=== PATIENT | female | born 1945 | race Caucasian/White ===

== ENCOUNTER → 2016-09-24 | Outpatient (REF) | payer MEDICARE, BC | LOC: M SFHCCLAY 07:02 | PROVIDERS: ATTEND Nurse Practitioner Family | DX: E75.6 Lipid storage disorder, unspecified (principal); E55.9 Vitamin D deficiency, unspecified ==

== ENCOUNTER → 2016-12-12 | Outpatient (CLI) | payer MEDICARE, BC ==
--- NOTE | 2016-12-12 14:16 | REPMRS ---
Patient History The patient states she has not had a clinical breast exam in over a year. Patient is postmenopausal. Family history of breast cancer in sister under age 50. Took estrogen for 3 years. Digital Woman Screen Mammo: December 12, 2016 - Exam #: [id number] Bilateral CC and MLO view(s) were taken. Technologist: Cindy Jaramillo Technologist Prior study comparison: April 28, 2015, digital woman screen mammo performed at [facility]. February 04, 2014, bilateral bilat screen digital mammo, performed at [facility] ([facility] FINDINGS: The breast tissue is heterogeneously dense. This may lower the sensitivity of mammography. There has been no change in the appearance of the mammogram from the prior studies. There is a moderate amount of residual fibroglandular tissue which is fairly symmetric. There is no interval development of dominant mass, areas of architectural distortion, or clustered microcalcification typical of malignancy. ASSESSMENT: BI-RADS/ACR category 1 mammogram. Negative. Recommendation Routine screening mammogram in 1 year (for women over age 40). This mammogram was interpreted with the aid of an FDA-approved computer-aided dectection system. Electronically Signed By: Ubaldo Bird MD 12/12/16 3560
== END ==
LOC: M WHC 11:14
PROVIDERS: ATTEND Nurse Practitioner Family
DX: Z12.31 Encounter for screening mammogram for malignant neoplasm of breast (principal)

== ENCOUNTER → 2017-01-23 | Outpatient (REF) | payer MEDICARE, BC ==
[~2017-01-23] MED LIST: AMLO10TA2 PO; CALCTAB63 PO; FOLI1TAB4 PO; HYDR12CA PO; MAGN64TASA PO; METH2.5TA PO; NAPR500T3 PO; QUIN1TAB15 PO; RANI150T PO; ROSU20TA PO; SYNT100T PO; VITA100067 PO
[2017-01-23 13:43] LABS: ANION GAP 8 MEQ/L (8-16); BLOOD UREA NITROGEN 18 MG/DL (7-18); CARBON DIOXIDE LEVEL 29 MEQ/L (21-32); CHLORIDE LEVEL 106 MEQ/L (98-107); CREATININE FOR GFR 0.75 MG/DL (0.55-1.02); GLOMERULAR FILTRATION RATE > 60.0 (>39); GLUCOSE, FASTING 82 MG/DL (83-110); POTASSIUM SERUM 4.6 MEQ/L (3.5-5.1); SODIUM LEVEL 143 MEQ/L (136-145)
== END ==
LOC: M LABDRAWC 12:28
PROVIDERS: ATTEND Ophthalmology
DX: I10 Essential (primary) hypertension (principal)
CPT/HCPCS: 36415; 80048; 93005; G0463

== ENCOUNTER 2017-02-07 10:41 | Day surgery (SDC) | payer MEDICARE, BC ==
[~2017-02-07] VITALS: Ht 167.6 cm; Wt 68.0 kg
[~2017-02-07 10:41] MED LIST changes: +ACETYLCHOLINE OPHTH SOLN 1% 2ML (MIOCHOL-E) As Ordered ONE; +BALANCED SALT IRRIGATION SOLUTION 500ML BAG (FOR OR EYE MACHINE) As Ordered ONE; +CEFUROXIME 1MG/0.1ML INTRACAMERAL INJ As Ordered ONE; +DUOVISC (0.50ML VISCOAT/0.55ML PROVISC) OPHTH KIT As Ordered ONE; +LIDOCAINE 0.75%/EPINEPHRINE 0.025% IN BSS 1ML SYR INTRACAMERAL (OR ONLY) As Ordered ONE; +MIDAZOLAM INJ 2 MG/2 ML VIAL (J2250) As Ordered ONE; +OFLOXACIN 0.3 % (OCUFLOX) OPTH SOL 5ML XX ONE; +PHENYLEPHRINE 2.5% OPHTH SOL 2ML XX ONE; +POVIDONE-IODINE 5% OPHTH PREP SOL 30ML As Ordered ONE; +PROPARACAINE 0.5% OPHTH SOL 15ML XX ONE; +TROPICAMIDE 1% OPHTH SOLN 2ML XX ONE; +fentaNYL 100 MCG/2 ML INJECTION (J3010) As Ordered ONE
[2017-02-07] MEDS ORDERED: LR 1,000 ML IV ONE (11:00)
[2017-02-07 14:40] VITALS: BP 138/62
--- NOTE | 2017-02-10 08:18 | RO ---
DATE OF PROCEDURE: 02/07/2017 PREOPERATIVE DIAGNOSIS: Visually significant nuclear sclerotic cataract right eye. POSTOPERATIVE DIAGNOSIS: Visually significant nuclear sclerotic cataract right eye. PROCEDURE: Cataract extraction with use of phacoemulsification, and placement of intraocular lens, AU00T0 24.0 D , right eye. SURGEON: Dell Vu DO FUEL PILOT ENGINEER: ANESTHESIA: Local with monitored anesthesia care (MAC). COMPLICATIONS: None. POSTOPERATIVE CONDITION: Stable. INDICATION FOR SURGERY: Blurred vision right eye affecting patient's activities of daily living. DESCRIPTION OF PROCEDURE: The patient was seen in the preoperative area and properly identified. The correct operative eye was identified and marked. Attention was turned to that eye. The patient received topical antibiotics in the preoperative area. The patient then received topical dilating drops consisting of Tropicamide and Phenylephrine. The patient was then transferred to the operating room. The correct side was re-identified. The patient received topical anesthetics and antibiotics on the surface of the eye. The eye was prepped and draped in a sterile fashion. The upper and lower eyelids were isolated with Tegaderm tape, and the lids were held open with an adjustable speculum. Using a sideport blade, a paracentesis incision was made. Intraocular preservative-free lidocaine was then injected into the anterior chamber. Viscoelastic was then injected into the anterior chamber through the paracentesis. Using a 2.6 mm sharp-tipped keratome, the anterior chamber was entered via a temporal clear corneal incision. A continuous curvilinear capsulorrhexis was created with the aid of a 26g cystotome and utrata forceps. Hydrodissection was performed with balanced salt solution (BSS) on a blunt cannula until the nucleus was freely mobile. The crystalline lens was phacoemulsified and aspirated. Additional cohesive viscoelastic was placed into the capsular bag to deepen it. A 24.0 lens D was placed into the capsular bag and confirmed by visualizing the continuous curvilinear capsulorrhexis. Additional irrigation and aspiration was used to remove cortical material and remaining viscoelastic. The clear corneal incision was hydrated with BSS on a blunt cannula. The lens was well positioned. The incisions were then tested for leaks and found to be negative. The eye was then palpated for appropriate pressure and adjusted accordingly with BSS. The eyelid speculum was carefully removed. A shield was placed over the eye. The patient tolerated the procedure well and was discharged to the recovery unit in a stable condition. edited: 02/11/2017 1434 tkf MTDD
== END 2017-02-07 14:54 | disposition home or self-care (01) ==
LOC: M SDC 10:41
PROVIDERS: ATTEND Ophthalmology
DX: H25.11 Age-related nuclear cataract, right eye (principal); I10 Essential (primary) hypertension; E78.5 Hyperlipidemia, unspecified; E03.9 Hypothyroidism, unspecified; Z92.3 Personal history of irradiation; Z79.899 Other long term (current) drug therapy; Z88.2 Allergy status to sulfonamides
CPT/HCPCS: 66984; J2250; J3010; V2632

== ENCOUNTER → 2017-03-07 | Day surgery (SDC) | payer MEDICARE, BC ==
[~2017-03-07] VITALS: Ht 167.6 cm; Wt 68.0 kg
[~2017-03-07] MED LIST changes: +LR 1,000 ML IV SCH; +OFLOXACIN 0.3 % (OCUFLOX) OPTH SOL 5ML OS ONE; -OFLOXACIN 0.3 % (OCUFLOX) OPTH SOL 5ML XX ONE; +PHENYLEPHRINE 2.5% OPHTH SOL 2ML OS ONE; -PHENYLEPHRINE 2.5% OPHTH SOL 2ML XX ONE; +PROPARACAINE 0.5% OPHTH SOL 15ML OS ONE; -PROPARACAINE 0.5% OPHTH SOL 15ML XX ONE; +TROPICAMIDE 1% OPHTH SOLN 2ML OS ONE; -TROPICAMIDE 1% OPHTH SOLN 2ML XX ONE
[2017-03-07 08:14] VITALS: BP 161/69
--- NOTE | 2017-03-07 09:45 | RO ---
DATE OF PROCEDURE: 03/07/2017 PREOPERATIVE DIAGNOSIS: Visually significant nuclear sclerotic cataract left eye. POSTOPERATIVE DIAGNOSIS: Visually significant nuclear sclerotic cataract left eye. PROCEDURE: Cataract extraction with use of phacoemulsification, and placement of intraocular lens, AU00T0, 24.5 D , left eye. SURGEON: Dell Vu DO MEDICAL DERMATOLOGIST: ANESTHESIA: Local with monitored anesthesia care (MAC). COMPLICATIONS: None. POSTOPERATIVE CONDITION: Stable. INDICATION FOR SURGERY: Blurred vision left eye affecting patient's activities of daily living. DESCRIPTION OF PROCEDURE: The patient was seen in the preoperative area and properly identified. The correct operative eye was identified and marked. Attention was turned to that eye. The patient received topical antibiotics in the preoperative area. The patient then received topical dilating drops consisting of Tropicamide and Phenylephrine. The patient was then transferred to the operating room. The correct side was re-identified. The patient received topical anesthetics and antibiotics on the surface of the eye. The eye was prepped and draped in a sterile fashion. The upper and lower eyelids were isolated with Tegaderm tape, and the lids were held open with an adjustable speculum. Using a sideport blade, a paracentesis incision was made. Intraocular preservative-free lidocaine was then injected into the anterior chamber. Viscoelastic was then injected into the anterior chamber through the paracentesis. Using a 2.4 mm sharp-tipped keratome, the anterior chamber was entered via a temporal clear corneal incision. A continuous curvilinear capsulorrhexis was created with the aid of a 26g cystotome and utrata forceps. Hydrodissection was performed with balanced salt solution (BSS) on a blunt cannula until the nucleus was freely mobile. The crystalline lens was phacoemulsified and aspirated. Additional cohesive viscoelastic was placed into the capsular bag to deepen it. A AU00T0, 24.5 lens D was placed into the capsular bag and confirmed by visualizing the continuous curvilinear capsulorrhexis. Additional irrigation and aspiration was used to remove cortical material and remaining viscoelastic. The clear corneal incision was hydrated with BSS on a blunt cannula. The lens was well positioned. The incisions were then tested for leaks and found to be negative. The eye was then palpated for appropriate pressure and adjusted accordingly with BSS. The eyelid speculum was carefully removed. A shield was placed. The patient tolerated the procedure well and was discharged to the recovery unit in a stable condition. SENTHIL
== END | disposition home or self-care (01) ==
LOC: M SDC 06:37
PROVIDERS: ATTEND Ophthalmology
DX: H25.12 Age-related nuclear cataract, left eye (principal); I10 Essential (primary) hypertension; E78.5 Hyperlipidemia, unspecified; E05.90 Thyrotoxicosis, unspecified without thyrotoxic crisis or storm; E03.9 Hypothyroidism, unspecified; Z79.899 Other long term (current) drug therapy; Z88.2 Allergy status to sulfonamides
CPT/HCPCS: 66984; J2250; J3010; V2632

== ENCOUNTER → 2017-03-26 | Outpatient (REF) | payer MEDICARE, BC ==
[~2017-03-26] MED LIST changes: -ACETYLCHOLINE OPHTH SOLN 1% 2ML (MIOCHOL-E) As Ordered ONE; -BALANCED SALT IRRIGATION SOLUTION 500ML BAG (FOR OR EYE MACHINE) As Ordered ONE; -CEFUROXIME 1MG/0.1ML INTRACAMERAL INJ As Ordered ONE; -DUOVISC (0.50ML VISCOAT/0.55ML PROVISC) OPHTH KIT As Ordered ONE; -LIDOCAINE 0.75%/EPINEPHRINE 0.025% IN BSS 1ML SYR INTRACAMERAL (OR ONLY) As Ordered ONE; -LR 1,000 ML IV SCH; -MIDAZOLAM INJ 2 MG/2 ML VIAL (J2250) As Ordered ONE; -OFLOXACIN 0.3 % (OCUFLOX) OPTH SOL 5ML OS ONE; -PHENYLEPHRINE 2.5% OPHTH SOL 2ML OS ONE; -POVIDONE-IODINE 5% OPHTH PREP SOL 30ML As Ordered ONE; -PROPARACAINE 0.5% OPHTH SOL 15ML OS ONE; -TROPICAMIDE 1% OPHTH SOLN 2ML OS ONE; -fentaNYL 100 MCG/2 ML INJECTION (J3010) As Ordered ONE
[2017-03-26 12:04] LABS: MEAN CORPUSCULAR HGB CONC 32.5 g/dl (32.0-36.5); MEAN CORPUSCULAR VOLUME 95.2 fl (80.0-96.0); RED CELL DISTRIBUTION WIDTH 14.8 % (11.5-14.5); WHITE BLOOD COUNT 4.9 10^3/uL (4.0-10.0)
[2017-03-26 13:41] LABS: ALBUMIN 4.2 GM/DL (3.2-5.2); ALBUMIN/GLOBULIN RATIO 1.62 (1.00-1.93); ALKALINE PHOSPHATASE 80 U/L (45-117); ALT/SGPT 26 U/L (12-78); ANION GAP 6 MEQ/L (8-16); AST/SGOT 21 U/L (15-37); BILIRUBIN,TOTAL 0.9 MG/DL (0.2-1.0); BLOOD UREA NITROGEN 17 MG/DL (7-18); CALCIUM LEVEL 8.8 MG/DL (8.8-10.2); CARBON DIOXIDE LEVEL 30 MEQ/L (21-32); CHLORIDE LEVEL 108 MEQ/L (98-107); CHOLESTEROL LEVEL 144 MG/DL (<200); CREATININE FOR GFR 0.83 MG/DL (0.55-1.02); GLOMERULAR FILTRATION RATE > 60.0 (>39); GLUCOSE, FASTING 84 MG/DL (83-110); POTASSIUM SERUM 4.2 MEQ/L (3.5-5.1); SODIUM LEVEL 144 MEQ/L (136-145); TOTAL PROTEIN 6.8 GM/DL (6.4-8.2); TRIGLYCERIDES LEVEL 49 MG/DL (<150)
== END ==
LOC: M SFHCCLAY 07:08
PROVIDERS: ATTEND Nurse Practitioner Family
DX: K21.9 Gastro-esophageal reflux disease without esophagitis (principal); I10 Essential (primary) hypertension; E75.6 Lipid storage disorder, unspecified; E03.9 Hypothyroidism, unspecified; E55.9 Vitamin D deficiency, unspecified

== ENCOUNTER → 2017-07-22 | Outpatient (REF) | payer MEDICARE, BC ==
[2017-07-22 12:05] LABS: ALBUMIN 4.4 GM/DL (3.2-5.2); ANION GAP 7 MEQ/L (8-16); BLOOD UREA NITROGEN 19 MG/DL (7-18); CALCIUM LEVEL 8.9 MG/DL (8.8-10.2); CARBON DIOXIDE LEVEL 28 MEQ/L (21-32); CHLORIDE LEVEL 106 MEQ/L (98-107); CREATININE FOR GFR 0.79 MG/DL (0.55-1.30); GLOMERULAR FILTRATION RATE > 60.0 (>39); GLUCOSE, FASTING 85 MG/DL (70-100); PHOSPHORUS LEVEL 3.2 MG/DL (2.5-4.9); POTASSIUM SERUM 4.5 MEQ/L (3.5-5.1); SODIUM LEVEL 141 MEQ/L (136-145)
== END ==
LOC: M LABDRAWC 11:21
DX: I11.9 Hypertensive heart disease without heart failure (principal)
CPT/HCPCS: 80069

== ENCOUNTER → 2017-11-28 | Outpatient (REF) | payer MEDICARE, BC ==
[2017-11-28 11:35] LABS: BASO % 0.7 % (0.0-1.0); EOS # 0.1 10^3/uL (0.0-0.50); EOS % 1.3 % (0.0-3.0); HEMATOCRIT 37.5 % (36.0-47.0); HEMOGLOBIN 12.3 g/dl (12.0-15.5); IMMATURE GRANULOCYTE % 0.3 % (0-3.0); LYMPH # 1.7 10^3/uL (1.5-4.5); LYMPH % 27.7 % (24.0-44.0); MEAN CORPUSCULAR HEMOGLOBIN 31.7 pg (27.0-33.0); MEAN CORPUSCULAR HGB CONC 32.8 g/dl (32.0-36.5); MEAN CORPUSCULAR VOLUME 96.6 fl (80.0-96.0); MONO # 0.4 10^3/uL (0.0-0.8); MONO % 6.9 % (0.0-5.0); NEUTROPHILS # 3.9 10^3/uL (1.8-7.7); NEUTROPHILS % 63.1 % (36.0-66.0); PLATELET COUNT, AUTOMATED 191 10^3/uL (150-450); RED BLOOD COUNT 3.88 10^6/uL (4.00-5.40); RED CELL DISTRIBUTION WIDTH 14.3 % (11.5-14.5); WHITE BLOOD COUNT 6.1 10^3/uL (4.0-10.0)
[2017-11-28 12:20] LABS: ALBUMIN/GLOBULIN RATIO 1.54 (1.00-1.93); ALKALINE PHOSPHATASE 79 U/L (45-117); ALT/SGPT 24 U/L (12-78); ANION GAP 5 MEQ/L (8-16); AST/SGOT 19 U/L (7-37); BILIRUBIN,TOTAL 0.8 MG/DL (0.2-1.0); BLOOD UREA NITROGEN 17 MG/DL (7-18); C REACTIVE PROTEIN QUANTITATIV < 0.30 MG/DL (0.00-0.30); CARBON DIOXIDE LEVEL 30 MEQ/L (21-32); CHLORIDE LEVEL 108 MEQ/L (98-107); GLOMERULAR FILTRATION RATE > 60.0 (>39); GLUCOSE, FASTING 111 MG/DL (70-100); POTASSIUM SERUM 4.2 MEQ/L (3.5-5.1); SODIUM LEVEL 143 MEQ/L (136-145); TOTAL PROTEIN 6.6 GM/DL (6.4-8.2)
== END ==
LOC: M LABDRAWC 11:13
DX: L40.50 Arthropathic psoriasis, unspecified (principal)
CPT/HCPCS: 80053

== ENCOUNTER → 2017-12-24 | Outpatient (CLI) | payer MEDICARE, BC | LOC: M WHC 09:59 | DX: Z12.31 Encounter for screening mammogram for malignant neoplasm of breast (principal); M81.0 Age-related osteoporosis without current pathological fracture | CPT/HCPCS: 77067 ==

== ENCOUNTER → 2018-04-08 | Outpatient (REF) | payer MEDICARE, BC ==
[2018-04-08 11:23] LABS: HEMATOCRIT 37.8 % (36.0-47.0); HEMOGLOBIN 12.2 g/dl (12.0-15.5); MEAN CORPUSCULAR HEMOGLOBIN 31.4 pg (27.0-33.0); MEAN CORPUSCULAR HGB CONC 32.3 g/dl (32.0-36.5); MEAN CORPUSCULAR VOLUME 97.2 fl (80.0-96.0); PLATELET COUNT, AUTOMATED 169 10^3/uL (150-450); RED BLOOD COUNT 3.89 10^6/uL (4.00-5.40); RED CELL DISTRIBUTION WIDTH 14.6 % (11.5-14.5); WHITE BLOOD COUNT 5.5 10^3/uL (4.0-10.0)
[2018-04-08 11:43] LABS: ALKALINE PHOSPHATASE 75 U/L (45-117); ALT/SGPT 26 U/L (12-78); ANION GAP 4 MEQ/L (8-16); AST/SGOT 27 U/L (7-37); BILIRUBIN,TOTAL 0.7 MG/DL (0.2-1.0); BLOOD UREA NITROGEN 21 MG/DL (7-18); CALCIUM LEVEL 8.2 MG/DL (8.8-10.2); CARBON DIOXIDE LEVEL 32 MEQ/L (21-32); CHLORIDE LEVEL 108 MEQ/L (98-107); CHOLESTEROL LEVEL 144 MG/DL (<200); CREATININE FOR GFR 0.75 MG/DL (0.55-1.30); GLOMERULAR FILTRATION RATE > 60.0 (>39); GLUCOSE, FASTING 81 MG/DL (70-100); HDL CHOLESTEROL 75 MG/DL (>40); LDL CHOLESTEROL 58 MG/DL (<100); NON-HDL-C 69 MG/DL; POTASSIUM SERUM 4.3 MEQ/L (3.5-5.1); SODIUM LEVEL 144 MEQ/L (136-145); THYROID STIMULATING HORMONE 0.371 uIU/ML (0.358-3.740); TOTAL 25(OH) VITAMIN D 76.1 NG/ML (30.0-100.0); TOTAL PROTEIN 6.5 GM/DL (6.4-8.2); TRIGLYCERIDES LEVEL 55 MG/DL (<150)
== END ==
LOC: M SFHCCLAY 07:04
DX: K21.9 Gastro-esophageal reflux disease without esophagitis (principal); L40.8 Other psoriasis; E78.5 Hyperlipidemia, unspecified; E03.9 Hypothyroidism, unspecified; M81.0 Age-related osteoporosis without current pathological fracture
CPT/HCPCS: 84443

== ENCOUNTER → 2018-09-03 | Outpatient (REF) | payer MEDICARE, BC ==
[~2018-09-03] MED LIST changes: -AMLO10TA2 PO; +AMLO10TA5 PO; +FOLI1TAB11 PO; -FOLI1TAB4 PO; +METH2.5T48 PO; -METH2.5TA PO; +NAPR-885 PO; -NAPR500T3 PO; -QUIN1TAB15 PO; +QUIN1TAB4 PO; -ROSU20TA PO; +ROSU20TA4 PO
[2018-09-03 18:42] LABS: ALBUMIN 3.9 GM/DL (3.2-5.2); ALT/SGPT 22 U/L (12-78); BILIRUBIN,TOTAL 0.6 MG/DL (0.2-1.0); BLOOD UREA NITROGEN 19 MG/DL (7-18); C REACTIVE PROTEIN QUANTITATIV < 0.30 MG/DL (0.00-0.30); CALCIUM LEVEL 8.6 MG/DL (8.8-10.2); CARBON DIOXIDE LEVEL 30 MEQ/L (21-32); CHLORIDE LEVEL 108 MEQ/L (98-107); CREATININE FOR GFR 0.88 MG/DL (0.55-1.30); GLOMERULAR FILTRATION RATE > 60.0 (>39); GLUCOSE, FASTING 137 MG/DL (70-100); POTASSIUM SERUM 4.3 MEQ/L (3.5-5.1); SODIUM LEVEL 141 MEQ/L (136-145)
[2018-09-03 18:57] LABS: BASO % 0.5 % (0.0-1.0); EOS # 0.1 10^3/uL (0.0-0.50); EOS % 1.1 % (0.0-3.0); HEMATOCRIT 35.3 % (36.0-47.0); HEMOGLOBIN 11.6 g/dl (12.0-15.5); LYMPH # 2.7 10^3/uL (1.5-4.5); LYMPH % 40.7 % (24.0-44.0); MEAN CORPUSCULAR HEMOGLOBIN 31.5 pg (27.0-33.0); MEAN CORPUSCULAR HGB CONC 32.9 g/dl (32.0-36.5); MEAN CORPUSCULAR VOLUME 95.9 fl (80.0-96.0); MONO # 0.5 10^3/uL (0.0-0.8); MONO % 6.9 % (0.0-5.0); NEUTROPHILS # 3.4 10^3/uL (1.8-7.7); NEUTROPHILS % 50.6 % (36.0-66.0); PLATELET COUNT, AUTOMATED 181 10^3/uL (150-450); RED BLOOD COUNT 3.68 10^6/uL (4.00-5.40); WHITE BLOOD COUNT 6.7 10^3/uL (4.0-10.0)
[2018-09-03 19:53] LABS: ERYTHROCYTE SEDIMENTATION RATE 7 mm/hr (0-30)
== END ==
LOC: M SFHCPLAZ 13:20
PROVIDERS: ATTEND Internal Medicine Rheumatology
DX: Z87.2 Personal history of diseases of the skin and subcutaneous tissue (principal)

== ENCOUNTER → 2018-09-03 | Outpatient (CLI) | payer MEDICARE, BC ==
--- NOTE | 2018-09-03 15:42 | REP ---
RIGHT KNEE, FIVE VIEWS: HISTORY: Osteoarthritis. There is no acute fracture or dislocation. There is moderate narrowing of the medial knee joint space and minimal narrowing of the lateral knee joint space and lateral patellofemoral joint space. Osteophytes are present on the femur, tibia, and patella. Chondrocalcinosis is present. IMPRESSION: Degenerative change as described above.
--- NOTE | 2018-09-03 15:44 | REP ---
BILATERAL KNEES STANDING, ONE VIEW: HISTORY: Osteoarthritis. RIGHT KNEE: There is no acute fracture or dislocation. There is moderate narrowing of the medial and minimal narrowing of the lateral knee joint space. Osteophytes are present on the tibia and femur. Chondrocalcinosis is present. LEFT KNEE: There is no acute fracture or dislocation. There is moderate narrowing of the medial and mild narrowing of the lateral knee joint space. IMPRESSION: Degenerative change as described above.
--- NOTE | 2018-09-03 15:54 | REP ---
BILATERAL HANDS, EIGHT VIEWS: HISTORY: Osteoarthritis. RIGHT HAND: There is no acute fracture or dislocation. There is narrowing of the first carpometacarpal joint space with associated osteophyte formation. There is narrowing of the metacarpophalangeal joint spaces. There is narrowing of the proximal and distal interphalangeal joint spaces. Osteophytes are present at the distal interphalangeal joints of the first through fifth digits and proximal joint of the fifth digit. Osteophytes are present on the second through fourth metacarpals. IMPRESSION: Degenerative change as described above. LEFT HAND: There is no acute fracture or dislocation. There is narrowing of the first carpometacarpal joint space with associated osteophyte formation. There is narrowing of the metacarpophalangeal joint spaces. There is narrowing of the proximal and distal interphalangeal joint spaces. Osteophytes are present at the proximal interphalangeal joint spaces of the second, third and fifth digits and distal interphalangeal joints of the second, the third and fifth digits.
== END ==
LOC: M CLY 13:55
PROVIDERS: ATTEND Internal Medicine Rheumatology
DX: M17.11 Unilateral primary osteoarthritis, right knee (principal); M25.761 Osteophyte, right knee; M18.0 Bilateral primary osteoarthritis of first carpometacarpal joints; M11.261 Other chondrocalcinosis, right knee; M25.741 Osteophyte, right hand; M19.041 Primary osteoarthritis, right hand; M25.742 Osteophyte, left hand; M19.042 Primary osteoarthritis, left hand; Z87.2 Personal history of diseases of the skin and subcutaneous tissue
CPT/HCPCS: 73130; 73564; 80053; 85025; 85652; 86140; G0463

== ENCOUNTER → 2018-10-09 | Outpatient (REF) | payer MEDICARE, BC ==
[2018-10-09 11:30] LABS: CHOLESTEROL RISK RATIO 2.137 (<5)
[2018-10-09 11:37] LABS: TOTAL 25(OH) VITAMIN D 44.8 NG/ML (30.0-100.0)
== END ==
LOC: M SFHCCLAY 06:57
PROVIDERS: ATTEND Nurse Practitioner Family
DX: E78.5 Hyperlipidemia, unspecified (principal); E55.9 Vitamin D deficiency, unspecified

== ENCOUNTER → 2018-12-18 | Outpatient (REF) | payer MEDICARE, BC ==
[~2018-12-18] MED LIST changes: -ROSU20TA4 PO; +ROSU20TA5 PO
[2018-12-18 13:42] LABS: BASO % 0.4 % (0.0-1.0); EOS # 0.1 10^3/uL (0.0-0.50); EOS % 1.4 % (0.0-3.0); HEMATOCRIT 36.9 % (36.0-47.0); HEMOGLOBIN 11.8 g/dl (12.0-15.5); LYMPH # 2.8 10^3/uL (1.5-4.5); LYMPH % 37.6 % (24.0-44.0); MEAN CORPUSCULAR HEMOGLOBIN 31.1 pg (27.0-33.0); MEAN CORPUSCULAR VOLUME 97.1 fl (80.0-96.0); MONO # 0.6 10^3/uL (0.0-0.8); NEUTROPHILS # 3.9 10^3/uL (1.8-7.7); NEUTROPHILS % 52.3 % (36.0-66.0); PLATELET COUNT, AUTOMATED 176 10^3/uL (150-450); WHITE BLOOD COUNT 7.4 10^3/uL (4.0-10.0)
[2018-12-18 13:51] LABS: ALBUMIN 4.1 GM/DL (3.2-5.2); ALT/SGPT 19 U/L (12-78); BILIRUBIN,TOTAL 0.7 MG/DL (0.2-1.0); BLOOD UREA NITROGEN 20 MG/DL (7-18); C REACTIVE PROTEIN QUANTITATIV 0.37 MG/DL (0.00-0.30); CALCIUM LEVEL 8.8 MG/DL (8.8-10.2); CARBON DIOXIDE LEVEL 28 MEQ/L (21-32); CHLORIDE LEVEL 110 MEQ/L (98-107); GLOMERULAR FILTRATION RATE > 60.0 (>39); GLUCOSE, FASTING 90 MG/DL (70-100); POTASSIUM SERUM 4.7 MEQ/L (3.5-5.1); SODIUM LEVEL 142 MEQ/L (136-145); TOTAL PROTEIN 6.6 GM/DL (6.4-8.2)
[2018-12-18 14:12] LABS: ERYTHROCYTE SEDIMENTATION RATE 13 mm/hr (0-30)
== END ==
LOC: M SFHCPLAZ 11:46
PROVIDERS: ATTEND Internal Medicine Rheumatology
DX: Z87.2 Personal history of diseases of the skin and subcutaneous tissue (principal)
CPT/HCPCS: 36415; 80053; 85025; 85652; 86140; G0463

== ENCOUNTER → 2019-03-17 | Outpatient (CLI) | payer MEDICARE, BC ==
[2019-03-17 11:28] LABS: HEMATOCRIT 38.7 % (36.0-47.0); HEMOGLOBIN 12.5 g/dl (12.0-15.5); MEAN CORPUSCULAR HEMOGLOBIN 30.6 pg (27.0-33.0); MEAN CORPUSCULAR HGB CONC 32.3 g/dl (32.0-36.5); MEAN CORPUSCULAR VOLUME 94.9 fl (80.0-96.0); PLATELET COUNT, AUTOMATED 174 10^3/uL (150-450); RED BLOOD COUNT 4.08 10^6/uL (4.00-5.40); WHITE BLOOD COUNT 6.1 10^3/uL (4.0-10.0)
[2019-03-17 11:54] LABS: ALT/SGPT 21 U/L (12-78); BILIRUBIN,TOTAL 0.8 MG/DL (0.2-1.0); BLOOD UREA NITROGEN 20 MG/DL (7-18); C REACTIVE PROTEIN QUANTITATIV < 0.30 MG/DL (0.00-0.30); CALCIUM LEVEL 9.2 MG/DL (8.8-10.2); CARBON DIOXIDE LEVEL 30 MEQ/L (21-32); CHLORIDE LEVEL 107 MEQ/L (98-107); CREATININE FOR GFR 0.85 MG/DL (0.55-1.30); GLOMERULAR FILTRATION RATE > 60.0 (>39); GLUCOSE, FASTING 76 MG/DL (70-100); POTASSIUM SERUM 4.5 MEQ/L (3.5-5.1); SODIUM LEVEL 143 MEQ/L (136-145); TOTAL PROTEIN 6.6 GM/DL (6.4-8.2)
[2019-03-17 12:04] LABS: ERYTHROCYTE SEDIMENTATION RATE 7 mm/hr (0-30)
== END ==
LOC: M LAB 10:24
PROVIDERS: ATTEND Internal Medicine Rheumatology
DX: Z87.2 Personal history of diseases of the skin and subcutaneous tissue (principal)
CPT/HCPCS: 36415; 80053; 85027; 85652; 86140; G0463

== ENCOUNTER → 2019-04-07 | Outpatient (REF) | payer MEDICARE, BC | LOC: M SFHCCLAY 06:57 | PROVIDERS: ATTEND Nurse Practitioner Family | DX: Z00.00 Encounter for general adult medical examination without abnormal findings (principal); Z79.899 Other long term (current) drug therapy ==

== ENCOUNTER → 2019-07-02 | Outpatient (REF) | payer MEDICARE, BC ==
[2019-07-02 19:03] LABS: ALBUMIN 4.2 GM/DL (3.2-5.2); ALT/SGPT 28 U/L (12-78); BILIRUBIN,TOTAL 0.7 MG/DL (0.2-1.0); BLOOD UREA NITROGEN 28 MG/DL (7-18); C REACTIVE PROTEIN QUANTITATIV 0.41 MG/DL (0.00-0.30); CALCIUM LEVEL 9.1 MG/DL (8.8-10.2); CARBON DIOXIDE LEVEL 27 MEQ/L (21-32); CHLORIDE LEVEL 107 MEQ/L (98-107); CREATININE FOR GFR 0.96 MG/DL (0.55-1.30); GLOMERULAR FILTRATION RATE > 60.0 (>39); GLUCOSE, FASTING 91 MG/DL (70-100); POTASSIUM SERUM 4.5 MEQ/L (3.5-5.1); SODIUM LEVEL 141 MEQ/L (136-145); TOTAL PROTEIN 6.6 GM/DL (6.4-8.2)
[2019-07-02 19:15] LABS: BASO % 0.5 % (0.0-1.0); EOS # 0.1 10^3/uL (0.0-0.5); EOS % 1.4 % (0.0-3.0); HEMATOCRIT 38.3 % (36.0-47.0); HEMOGLOBIN 12.3 g/dl (12.0-15.5); LYMPH # 2.8 10^3/uL (1.5-5.0); LYMPH % 37.7 % (24.0-44.0); MEAN CORPUSCULAR HEMOGLOBIN 30.7 pg (27.0-33.0); MEAN CORPUSCULAR HGB CONC 32.1 g/dl (32.0-36.5); MEAN CORPUSCULAR VOLUME 95.5 fl (80.0-96.0); MONO # 0.6 10^3/uL (0.0-0.8); MONO % 7.7 % (0.0-5.0); NEUTROPHILS # 3.8 10^3/uL (1.5-8.5); NEUTROPHILS % 52.3 % (36.0-66.0); PLATELET COUNT, AUTOMATED 193 10^3/uL (150-450); RED BLOOD COUNT 4.01 10^6/uL (4.00-5.40); WHITE BLOOD COUNT 7.3 10^3/uL (4.0-10.0)
[2019-07-02 19:44] LABS: ERYTHROCYTE SEDIMENTATION RATE 6 mm/hr (0-30)
== END ==
LOC: M SFHCRHEU 13:59
PROVIDERS: ATTEND Internal Medicine
DX: L40.50 Arthropathic psoriasis, unspecified (principal)
CPT/HCPCS: 36415; 80053; 85025; 85652; 86140; G0463

== ENCOUNTER → 2019-12-24 | Outpatient (REF) | payer MEDICARE, BC ==
[2019-12-24 11:44] LABS: BASO % 0.3 % (0.0-1.0); EOS # 0.1 10^3/uL (0.0-0.5); EOS % 1.3 % (0.0-3.0); HEMATOCRIT 38.8 % (36.0-47.0); HEMOGLOBIN 12.6 g/dl (12.0-15.5); LYMPH # 2.7 10^3/uL (1.5-5.0); LYMPH % 43.6 % (24.0-44.0); MEAN CORPUSCULAR HEMOGLOBIN 31.5 pg (27.0-33.0); MEAN CORPUSCULAR HGB CONC 32.5 g/dl (32.0-36.5); MONO # 0.4 10^3/uL (0.0-0.8); MONO % 6.4 % (0.0-5.0); NEUTROPHILS % 48.2 % (36.0-66.0); PLATELET COUNT, AUTOMATED 175 10^3/uL (150-450); WHITE BLOOD COUNT 6.2 10^3/uL (4.0-10.0)
[2019-12-24 11:58] LABS: ALBUMIN 4.2 GM/DL (3.2-5.2); ALT/SGPT 22 U/L (12-78); BILIRUBIN,TOTAL 0.9 MG/DL (0.2-1.0); BLOOD UREA NITROGEN 20 MG/DL (7-18); CALCIUM LEVEL 8.7 MG/DL (8.8-10.2); CARBON DIOXIDE LEVEL 28 MEQ/L (21-32); CHLORIDE LEVEL 108 MEQ/L (98-107); CHOLESTEROL LEVEL 149 MG/DL (<200); CHOLESTEROL RISK RATIO 2.069 (<5); CREATININE FOR GFR 0.78 MG/DL (0.55-1.30); GLOMERULAR FILTRATION RATE > 60.0 (>39); GLUCOSE, FASTING 108 MG/DL (70-100); HDL CHOLESTEROL 72 MG/DL (>40); LDL CHOLESTEROL 63 MG/DL (<100); NON-HDL-C 77 MG/DL; POTASSIUM SERUM 4.1 MEQ/L (3.5-5.1); SODIUM LEVEL 140 MEQ/L (136-145); THYROID STIMULATING HORMONE 0.279 uIU/ML (0.358-3.740); TOTAL 25(OH) VITAMIN D 65.4 NG/ML (30.0-100.0); TOTAL PROTEIN 6.7 GM/DL (6.4-8.2); TRIGLYCERIDES LEVEL 68 MG/DL (<150)
[2019-12-24 12:16] LABS: ERYTHROCYTE SEDIMENTATION RATE 10 mm/hr (0-30)
== END ==
LOC: M SFHCCLAY 08:09
PROVIDERS: ATTEND Nurse Practitioner Family
DX: K21.9 Gastro-esophageal reflux disease without esophagitis (principal); I10 Essential (primary) hypertension; E78.5 Hyperlipidemia, unspecified; E03.9 Hypothyroidism, unspecified; E55.9 Vitamin D deficiency, unspecified

== ENCOUNTER → 2020-01-13 | Outpatient (REF) | payer MEDICARE, BC | LOC: M SFHCCLAY 13:59 | PROVIDERS: ATTEND Family Medicine | DX: Z11.59 Encounter for screening for other viral diseases (principal); R50.81 Fever presenting with conditions classified elsewhere ==

== ENCOUNTER → 2020-04-27 | Outpatient (REF) | payer MEDICARE, BC ==
[~2020-04-27] MED LIST changes: -AMLO10TA5 PO; +AMLO1TAB25 PO
[2020-04-27 12:35] LABS: HEMATOCRIT 38.3 % (36.0-47.0); HEMOGLOBIN 12.5 g/dl (12.0-15.5); MEAN CORPUSCULAR HEMOGLOBIN 31.9 pg (27.0-33.0); MEAN CORPUSCULAR HGB CONC 32.6 g/dl (32.0-36.5); MEAN CORPUSCULAR VOLUME 97.7 fl (80.0-96.0); PLATELET COUNT, AUTOMATED 185 10^3/uL (150-450); RED BLOOD COUNT 3.92 10^6/uL (4.00-5.40); WHITE BLOOD COUNT 6.6 10^3/uL (4.0-10.0)
[2020-04-27 13:43] LABS: ALT/SGPT 21 U/L (12-78); BILIRUBIN,TOTAL 0.7 MG/DL (0.2-1.0); BLOOD UREA NITROGEN 23 MG/DL (7-18); CALCIUM LEVEL 8.8 MG/DL (8.8-10.2); CARBON DIOXIDE LEVEL 27 MEQ/L (21-32); CHLORIDE LEVEL 108 MEQ/L (98-107); CREATININE FOR GFR 0.73 MG/DL (0.55-1.30); GLOMERULAR FILTRATION RATE > 60.0 (>39); GLUCOSE, FASTING 83 MG/DL (70-100); POTASSIUM SERUM 4.3 MEQ/L (3.5-5.1); SODIUM LEVEL 140 MEQ/L (136-145); TOTAL PROTEIN 6.4 GM/DL (6.4-8.2)
[2020-04-27 13:53] LABS: ERYTHROCYTE SEDIMENTATION RATE 10 mm/hr (0-30)
== END ==
LOC: M LABDRAWC 11:30
PROVIDERS: ATTEND Internal Medicine Rheumatology
DX: M06.4 Inflammatory polyarthropathy (principal); Z79.899 Other long term (current) drug therapy

== ENCOUNTER → 2020-04-27 | Outpatient (REF) | payer MEDICARE, BC | LOC: M SFHCCLAY 12:31 | PROVIDERS: ATTEND Nurse Practitioner Family | DX: Z53.9 Procedure and treatment not carried out, unspecified reason (principal); R73.9 Hyperglycemia, unspecified; E03.9 Hypothyroidism, unspecified ==

== ENCOUNTER → 2020-04-27 | Outpatient (REF) | payer MEDICARE, BC ==
[2020-04-27 13:43] LABS: THYROID STIMULATING HORMONE 0.454 uIU/ML (0.358-3.740)
[2020-04-27 20:28] LABS: HEMOGLOBIN A1c 5.5 %
== END ==
LOC: M SFHCCLAY 11:28
PROVIDERS: ATTEND Nurse Practitioner Family
DX: R73.9 Hyperglycemia, unspecified (principal); E03.9 Hypothyroidism, unspecified

== ENCOUNTER → 2020-07-08 | Outpatient (REF) | payer MEDICARE, BC ==
[2020-07-08 12:25] LABS: BLOOD UREA NITROGEN 24 MG/DL (7-18); CARBON DIOXIDE LEVEL 29 MEQ/L (21-32); CHLORIDE LEVEL 106 MEQ/L (98-107); CREATININE FOR GFR 0.76 MG/DL (0.55-1.30); GLOMERULAR FILTRATION RATE > 60.0 (>39); GLUCOSE, FASTING 96 MG/DL (70-100); POTASSIUM SERUM 4.3 MEQ/L (3.5-5.1); SODIUM LEVEL 141 MEQ/L (136-145)
== END ==
LOC: M LABDRAWC 11:10
PROVIDERS: ATTEND Physician Assistant
DX: I11.9 Hypertensive heart disease without heart failure (principal)

== ENCOUNTER → 2020-08-01 | Outpatient (CLI) | payer MEDICARE, BC ==
--- NOTE | 2020-08-01 14:34 | REPMRS ---
Patient History The patient states she has not had a clinical breast exam in over a year. Family history of breast cancer under age 50 in sister. Took estrogen for 3 years. Digital Woman Screen Mammo: August 01, 2020 - Exam #: [id number] Bilateral CC and MLO view(s) were taken. Technologist: Paola Jaime, Technologist Prior study comparison: December 24, 2017, bilateral digital woman screen mammo performed at [facility]. December 12, 2016, digital woman screen mammo performed at [facility]. April 28, 2015, digital woman screen mammo performed at [facility]. FINDINGS: There are scattered fibroglandular densities. The Volpara volumetric breast density category is:B. There has been no change in the appearance of the mammogram from the prior studies. There is a mild amount of scattered fibroglandular density which is fairly symmetric. There is no interval development of dominant mass, architectural distortion, or grouped microcalcification suggestive of malignancy. 3-D tomosynthesis shows no additional findings. Assessment: BI-RADS/ACR category 1 mammogram. Negative Mammogram. Recommendation Routine screening mammogram of both breasts in 1 year (for women over age 40). This patient's [facility] Lifetime Breast Cancer Risk is estimated at 7.4 %. This mammogram was interpreted with the aid of an FDA-approved computer-aided dectection system. Electronically Signed By: Pedro Avila MD 08/01/20 3253
== END ==
LOC: M WHC 12:54
PROVIDERS: ATTEND Nurse Practitioner Family
DX: Z12.31 Encounter for screening mammogram for malignant neoplasm of breast (principal); I10 Essential (primary) hypertension

== ENCOUNTER 2020-08-18 14:26 | Emergency (ER) | payer MEDICARE, BC ==
[~2020-08-18] VITALS: Ht 165.1 cm; Wt 68.0 kg
[2020-08-18] MEDS ORDERED: NS 1,000 ML IV SCH (14:36)
[2020-08-18] MEDS ORDERED: ASPIRIN 81 MG CHEW TABLET PO ONE (14:40)
[2020-08-18 15:08] LABS: BASO % 0.4 % (0.0-1.0); EOS # 0.1 10^3/uL (0.0-0.5); EOS % 0.8 % (0.0-3.0); HEMATOCRIT 42.8 % (36.0-47.0); HEMOGLOBIN 13.7 g/dl (12.0-15.5); LYMPH # 2.3 10^3/uL (1.5-5.0); LYMPH % 29.1 % (24.0-44.0); MEAN CORPUSCULAR HEMOGLOBIN 30.3 pg (27.0-33.0); MEAN CORPUSCULAR VOLUME 94.7 fl (80.0-96.0); MONO # 0.7 10^3/uL (0.0-0.8); MONO % 8.5 % (2.0-8.0); NEUTROPHILS # 4.7 10^3/uL (1.5-8.5); NEUTROPHILS % 61.1 % (36.0-66.0); PLATELET COUNT, AUTOMATED 187 10^3/uL (150-450); RED BLOOD COUNT 4.52 10^6/uL (4.00-5.40); WHITE BLOOD COUNT 7.7 10^3/uL (4.0-10.0)
--- NOTE | 2020-08-18 15:08 | REP ---
INDICATION: CHEST PAIN. COMPARISON: Comparison chest x-ray 28 June 2014. TECHNIQUE: Portable upright AP chest radiograph. FINDINGS: The lungs are well inflated and free of infiltrate. Pleural angles are sharp. Heart size is borderline. Pulmonary vasculature is not increased. There are mild degenerative changes in the thoracic spine and shoulders. Monitoring electrodes are present. IMPRESSION: No active disease. <Electronically signed by Pedro Avila > 08/18/20 6533
--- OUTSIDE RECORDS SUMMARY | 2020-08-18 15:08 | CCD | Continuity of Care Document ---
Author Author Patria WALSH PA-C Organization Unknown Address [address] [facility] [place] [address] Phone [phone] Care Team Providers Care Peoplesoft Crm Developer Name Role Phone Paz Munguia MEDICATION COORDINATOR AUTM [phone] Problems Active Problems Provider Date Benign hypertensive heart disease without congestive h eart failure Darryl Zapata MD Onset: 06/01/2014 Electrocardiogram abnormal Darryl Zapata MD Onset: 2013 Premature beats Piedad Walsh PA-C Onset: 02/11/2018 Mitral valve disorder Piedad Walsh PA-C Onset: 08/02/2017 Aortic valve disorder Piedad Walsh PA-C Onset: 08/02/2017 Pure hypercholesterolemia Mary Bledsoe NP Onset: 015 Dietary management surveillance Piedad Walsh PA-C Onset: 08/02/2017 Social History Type Date Description Comments Sex Unknown ETOH Use Does not consume alcohol Tobacco Use Start: Unknown End: Unknown Patient is a former smoker Smoked <1 ppd for 19 years, quit in 1981 Smoking Status Reviewed: 07/06/20 Patient is a former smoker Sm oked <1 ppd for 19 years, quit in 1981 Exercise Type/Frequency Does yardwork sporadical ly Exercise Type/Frequency Does housework daily Exercise Type/Frequency 30 minute Exercise routi ne daily Exercise Limitations Joint Pain right knee Exercise Limitations Arthritis Allergies, Adverse Reactions, Alerts Active Allergies Reaction Severity Comments Date Plaquenil RASH 06/01/2014 Sulfa Contact dermatitis 5 Pravastatin myalgias 07/01/2015 Medications Active Medications SIG Qnty Indications Ordering Provide r Date Vitamin D 1000Unit Tablets 1 by mouth every day Unknown 07/19/2019 Vitamin B12 1000mcg Tablets ER 1 by mouth every day Unknown 07/19/2019 Hydrochlorothiazide 25mg Tablets 1 by mouth every day only as needed Paz Munguia NP 02/09/2019 Biotin 1000mcg Tablets 1 by mouth every day Unknown 02/09/2019 Acetaminophen 500mg Tablets 1-2 by mouth every 6 hours as needed Unknown 08/08/19 18 Crestor 10mg Tablets 1 by mouth every night at bedtime 90tabs E78.00 Darryl Zapata MD 08/02/2017 Mag64 535(64mg) mg Tablets ER 2 by mouth once a day Nikhil Reid MD 12/28/2014 Quinapril HCL 40mg Tablets 1 by mouth twice a day 180tabs Unknown 05/31/2014 Amlodipine Besylate 10mg Tablets 1 by mouth every day 30tabs Unknown 05/31/2014 Methotrexate 2.5mg Tablets 6 by mouth once weekly Unknown 05/31/2014 Folic Acid 1mg Tablets 2 by mouth every day 90tabs Unknown 05/31/2014 Levothyroxine Sodium 100mcg Tablet s 1 by mouth every day Unknown 05/31/2014 Immunizations Description No Information Available Vital Signs Date Vital Result Comment 07/06/2020 1:18pm Weight 152.00 lb Home Weight 151lb Home weight Height 66 inches 5'6" BMI (Body Mass Index) 24.5 kg/m2 Heart Rate 63 /min Respiratory Rate 16 /min BP Systolic Sitting 132 mmHg BP Diastolic Sitting 68 mmHg O2 % BldC Oximetry 97 % 01/04/2020 8:43am Weight 150.00 lb Home Weight 149lb home weight Height 66 inches 5'6" BMI (Body Mass Index) 24.2 kg/m2 Heart Rate 64 /min Regular Respiratory Rate 16 /min BP Systolic Right Arm 142 mmHg sitting, regular c uff BP Diastolic Right Arm 74 mmHg sitting, regular cuff BP Systolic Left Arm 140 mmHg sitting BP Diastolic Left Arm 72 mmHg sitting Results Test Acquired Date Facility Test Result H/L Range Note Basic Metabolic Profile 07/08/2020 [facility] [phone] Glucose, Fasting 96 mg/dL Normal 70-100 Blood Urea Nitrogen 24 mg/dL High 7-18 Creatinine For GFR 0.76 mg/dL Normal 0.55-1.30 Glomerular Filtration Rate > 60.0 Normal >39 1 Sodium Level 141 mEq/L Normal 136-145 Potassium Serum 4.3 mEq/L Normal 3.5-5.1 Chloride Level 106 mEq/L Normal 98-107 Carbon Dioxide Level 29 mEq/L Normal 21-32 Anion Gap 6 mEq/L Low 8-16 Calcium Level 9.0 mg/dL Normal 8.8-10.2 Hemoglobin A1c 04/27/2020 [facility] - not interfaced (315)- - Hemoglobin A1c 5.5 Laboratory test finding 04/27/2020 [facility] - not interf aced (315)- - Thyroid Stimulating Hormone 0.454 1 Units are mL/min/1.73 m2 Chronic Kidney Disease Staging per NKF: Stage I & II GFR >=60 Normal to Mildly Decreased Stage III GFR 30-59 Moderately Decreased Stage IV GFR 15-29 Severely Decreased Stage V GFR <15 Very Little GFR Left ESRD GFR <15 on VOLTMETER OPERATOR Procedures Date Code Description Status 07/06/2020 91707 ECG 12-Lead Completed 04/19/2020 42355 Echocardiogram 2-D Doppler Color Completed Medical Devices Description No Information Available Encounters Type Date Location Provider Dx Diagnosis Office Visit 07/06/2020 1:30p Main Office Piedad Walsh PA-C I11.9 Hypertensive heart disease without heart failure R94.31 Abnormal electrocardiogram [ ECG] [EKG] I49.3 Ventricular premature depola rization I35.1 Nonrheumatic aortic (valve) insufficiency I34.0 Nonrheumatic mitral (valve) insufficiency E78.00 Pure hypercholesterolemia, u nspecified Assessments Date Code Description Provider 07/06/2020 I11.9 Hypertensive heart disease witho ut heart failure Piedad Walsh PA-C 07/06/2020 R94.31 Abnormal electrocardiogram [ECG] [EKG] Piedad Walsh PA-C 07/06/2020 I49.3 Ventricular premature depolariza tion PARESH Fuentes 07/06/2020 I35.1 Nonrheumatic aortic (valve) insu fficiency Piedad Walsh PA-C 07/06/2020 I34.0 Nonrheumatic mitral (valve) insu fficiency Piedad Walsh PA-C 07/06/2020 E78.00 Pure hypercholesterolemia, unspe cified Piedad Walsh PA-C 04/19/2020 I35.1 Nonrheumatic aortic (valve) insu fficiency ECHO 04/19/2020 I34.0 Nonrheumatic mitral (valve) insu fficiency ECHO Plan of Treatment Future Appointment(s):* 01/04/2021 9:45 am - Piedad Walsh PA-C at Main Office 07/06/2020 - Piedad Walsh PA-C* I11.9 Hypertensive heart disease without heart failure * R94.31 Abnormal electrocardiogram [ECG] [EKG] * I49.3 Ventricular premature depolarization * I35.1 Nonrheumatic aortic (valve) insufficiency * I34.0 Nonrheumatic mitral (valve) insufficiency * E78.00 Pure hypercholesterolemia, unspecified * All * Follow up:* 6 month follow up. Functional Status Functional Condition Comment Date Status Independent with all ADL's Activ e Requires assistance with ambulating Uses cane while ou t, walker in the house PRN Active Mental Status Description No Information Available Referrals Description No Information Available
--- OUTSIDE RECORDS SUMMARY | 2020-08-18 15:09 | CCD ---
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 Active 652613991 Problem Impacted cerumen, unspecified laterality H61.20 Active 66245346 Problem Unilateral primary osteoarthritis, unspecified knee M17.10 Active 258579226 Problem Need for prophylactic vaccination and inoculatio n against influenza Z23 Active 817357574 Problem 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 Active 3333 9001 Problem Other psoriasis L40.8 Active 7854245 Problem Lipid storage disorder, unspecified E75.6 Acti ve 768912815 Problem Essential (primary) hypertension I10 Active 03102750 Problem Anemia, unspecified D64.9 Active 564867846 Problem GERD (gastroesophageal reflux disease) K21.9 A ctive 398411937 Problem Warts B07.9 Active 92009652 Problem Psoriatic arthritis L40.50 Active 675071475 Problem Hypothyroidism, unspecified E03.9 Active 4093 0008 Problem Senile osteoporosis M81.0 Active 12542060 Problem Viral syndrome B34.9 Active 73939020 Problem Vitamin D deficiency, unspecified E55.9 Active 56819675 Problem Herpes simplex without mention of complication B00 .9 Active 31569567 Problem Multiple chronic diseases R69 Active 111411 0344561 Problem Hyperlipidemia, unspecified hyperlipidemia type E7 8.5 Active 76749499 Problem History of psoriatic arthritis Z87.2 Active 2 06926579 Problem Primary osteoarthritis involving multiple joints M 15.0 Active 328604618 ALLERGIES Allergen (clinical drug ingredient) Drug/Non Drug Allergy do cumented on EMR Reaction Allergy Type Onset Date Status Sulfacetamide Sod-Sulfur Rash Drug Allergy Active hydroxychloroquine Plaquenil([facility] Code:[address]-19) Rash Drug Allergy Active pravastatin leg cramps Non Drug Allergy Active ENCOUNTERS from 1943 to 2020-05-27 Encounter Location Date Provider Diagnosis [facility] [address] [place] [address] May Marilu Munguia IMMUNIZATIONS Vaccine Route Administration Date Status Influenza (18 yrs & older) Flublok IM Intramuscular Apr 13, 2020 Administered Influenza (High Dose 65 & up) IM Intramuscular May 08, 2017 A dministered Influenza (18 yrs & older) Flublok IM Intramuscular Apr 17, 2018 Administered Influenza (18 yrs & older) Flublok IM Intramuscular Apr 15, 2019 Administered Influenza (6mo & up) Fluzone IM Intramuscular Apr 30, 2012 Ad ministered Influenza (High Dose 65 & up) Unknown May 30, 2016 Ot hers Influenza (High Dose 65 & up) Unknown May 30, 2016 Ot hers Influenza (High Dose 65 & up) Unknown May 30, 2016 Ot hers Influenza (High Dose 65 & up) IM Intramuscular Apr 19, 2015 A dministered Pneumococcal Adult 0.5mL (Pneumovax 23) IM Intramuscular Apr 19, 2015 Administered Pneumococcal 0.5mL (Prevnar 13) IM Intramuscular Apr 22, 2014 Administered Influenza (6mo & up) Fluzone IM Intramuscular Apr 22, 2014 Ad ministered Influenza (6mo & up) Fluzone IM Intramuscular May 07, 2013 Ad ministered SOCIAL HISTORY Tobacco Use: Social History Observation Description Date Details (start date - stop date) Former Smoker Sex Assigned At : Social History Observation Description Sex Assigned At Unknown Audit Question Answer Notes Total Score: 0 Interpretation: Alcohol Education Language: Question Answer Notes Languages spoken: Jamaican Orthodoxy: Question Answer Notes Orthodoxy 06 Orthodox Sexual Hx: Question Answer Notes Had sex in the last 12 months (vaginal, oral, or anal)? No Have you ever had an STD? No Drug and Alcohol Question Answer Notes Total Score: 0 Interpretation: No problems reported Alcohol Screening: Question Answer Notes Did you have a drink containing alcohol in the past year? No Points 0 Interpretation Negative Tobacco Use: Question Answer Notes Are you a: former smoker quit smoking 2009 up dated 01/13/2020 How long has it been since you last smoked? > 10 years REASON FOR REFERRAL No Information VITAL SIGNS No information MEDICATIONS Medication SIG (Take, Route, Frequency, Duration) Notes Start Da te End Date Status Vitamin B-12 2500 MCG as directed Sublingual Once a day Active Biotin 1000 MCG 1 tablet Orally Once a day Active Norvasc 10MG 1 tablet Orally Once a day for 90 days Active Rosuvastatin Calcium 10 MG 1 tablet Oral Once a day Active Accupril 40MG 1 tablet Orally bid Ac tive Synthroid 100MCG 1 tablet every morning on an empty stomach Oral ly Once a day Active Methotrexate 2.5MG 6 tab Orally WEEKLY Active Calcipotriene 0.005% APPLY OINTMENT TOPICALLY TO AFFECTED AREA TWICE DAILY NEEDED Active Mag64 535 (64 Mg) MG 1 tablet Orally Twice a day Active Vitamin D 2000 UNIT 1 tab Orally bid Active Folic Acid 1MG 2 tabs Orally Once a day Active PROCEDURES No Information RESULTS No Results REASON FOR VISIT Refill - Amlodipine MEDICAL (GENERAL) HISTORY Type Description Date Medical History PSORIASIS Medical History PSORIATIC ARTHRITIS Medical History HYPERTENSION Medical History HYPOTHYROID Medical History OSTEOPENIA DEXA 08/30, 10/02 Medical History HYPERLIPIDEMIA Medical History LOW VITAMIN D 08/01 Medical History DEGENERATIVE ARTHRITIS OF THE KNEES Medical History MAMMOGRAM 08/31 Medical History Mitral valve prolapse w/out heart failur e Surgical History X1 Surgical History BILAT CATARACT SURGERY 2017 Hospitalization History SURGERY Goals Section No Information Health Concerns No Information MEDICAL EQUIPMENT No Information MENTAL STATUS No Information FUNCTIONAL STATUS No Information ASSESSMENTS No Information PLAN OF TREATMENT Medication Medication Name Sig Start Date Stop Date Vitamin B-12 2500 MCG as directed Sublingual Once a day Mag64 535 (64 Mg) MG 1 tablet Orally Twice a day Vitamin D 2000 UNIT 1 tab Orally bid Norvasc 10MG 1 tablet Orally Once a day for 90 days Calcipotriene 0.005% APPLY OINTMENT TOPICALLY TO AFFECTED AREA TWICE DAILY NEEDED Rosuvastatin Calcium 10 MG 1 tablet Oral Once a day Biotin 1000 MCG 1 tablet Orally Once a day Accupril 40MG 1 tablet Orally bid Synthroid 100MCG 1 tablet every morning on an empty stomach Oral ly Once a day Methotrexate 2.5MG 6 tab Orally WEEKLY Folic Acid 1MG 2 tabs Orally Once a day Next Appt Details Provider Name:Marilu Munguia, 2020-08-31 09:30:00 AM, Raquel [address], [place], [address], Insurance Providers Payer Name Payer Address Payer Phone Insured Name Patient Relati onship to Insured Coverage Start Date Coverage End Date MEDICARE Part A and B [address] [facility] [phone] LULA GUTIERREZ BS [place] [address] [facility] [id number] LULA GUTIERREZ self
--- OUTSIDE RECORDS SUMMARY | 2020-08-18 15:09 | CCD ---
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 Active 487590919 Problem Impacted cerumen, unspecified laterality H61.20 Active 69132674 Problem Unilateral primary osteoarthritis, unspecified knee M17.10 Active 060542259 Problem Need for prophylactic vaccination and inoculatio n against influenza Z23 Active 227222247 Problem 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 Active 3333 9001 Problem Other psoriasis L40.8 Active 5570783 Problem Lipid storage disorder, unspecified E75.6 Acti ve 672487054 Problem Essential (primary) hypertension I10 Active 99372410 Problem Anemia, unspecified D64.9 Active 658560331 Problem GERD (gastroesophageal reflux disease) K21.9 A ctive 646380342 Problem Warts B07.9 Active 08560836 Problem Psoriatic arthritis L40.50 Active 472106991 Problem Hypothyroidism, unspecified E03.9 Active 4093 0008 Problem Senile osteoporosis M81.0 Active 40345176 Problem Viral syndrome B34.9 Active 94700558 Problem Vitamin D deficiency, unspecified E55.9 Active 10198931 Problem Herpes simplex without mention of complication B00 .9 Active 49166953 Problem Multiple chronic diseases R69 Active 599484 6691453 Problem Hyperlipidemia, unspecified hyperlipidemia type E7 8.5 Active 95691505 Problem History of psoriatic arthritis Z87.2 Active 2 70075562 Problem Primary osteoarthritis involving multiple joints M 15.0 Active 604290120 ALLERGIES Allergen (clinical drug ingredient) Drug/Non Drug Allergy do cumented on EMR Reaction Allergy Type Onset Date Status Sulfacetamide Sod-Sulfur Rash Drug Allergy Active hydroxychloroquine Plaquenil([facility] Code:[address]-14) Rash Drug Allergy Active pravastatin leg cramps Non Drug Allergy Active ENCOUNTERS from 1945 to 2020-05-25 Encounter Location Date Provider Diagnosis [facility] [address] [address] Apr Marilu Munguia Other psoriasis L40.8 ; 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 and Psoriatic arthritis L40.50 IMMUNIZATIONS Vaccine Route Administration Date Status Influenza [...] Education Language: Question Answer Notes Languages spoken: Setswana Buddhist: Question Answer Notes Buddhist 06 Uatsdin Sexual Hx: Question Answer Notes Had sex [...] as directed Sublingual Once a day Active Norvasc 10MG 1 tablet Orally Once a day Active Rosuvastatin Calcium 10 MG 1 tablet Oral Once a day Active Biotin 1000 MCG 1 tablet Orally Once a day Active Accupril 40MG 1 [...] Information RESULTS No Results REASON FOR VISIT No Information MEDICAL (GENERAL) HISTORY Type Description Date Medical [...] No Information FUNCTIONAL STATUS No Information ASSESSMENTS Encounter Date Diagnosis Assessment Notes Treatment Notes Treatm ent Clinical Notes Apr, Other psoriasis (ICD-10 - L40.8) Apr, Other psoriatic arthropathy (ICD-10 - L40.59) Apr, Psoriatic arthritis (ICD-10 - L40.50) PLAN OF TREATMENT Medication Medication Name Sig Start Date Stop Date Vitamin B-12 2500 MCG as directed Sublingual Once a day Mag64 535 (64 Mg) MG 1 tablet Orally Twice a day Vitamin D 2000 UNIT 1 tab Orally bid Rosuvastatin Calcium 10 MG 1 tablet Oral Once a day Calcipotriene 0.005% APPLY OINTMENT TOPICALLY TO AFFECTED AREA TWICE DAILY NEEDED Biotin 1000 MCG 1 tablet Orally Once a day Norvasc 10MG 1 tablet Orally Once a day Accupril 40MG 1 tablet Orally bid Synthroid 100MCG 1 tablet every morning on an empty stomach Oral ly Once a day Methotrexate 2.5MG 6 tab Orally WEEKLY Folic Acid 1MG 2 tabs Orally Once a day Next Appt Details Provider Name:Marilu Munguia, 2020-08-31 09:30:00 AM, [address] [facility], [place], [address], Insurance Providers Payer Name Payer Address Payer Phone Insured Name Patient Relati onship to Insured Coverage Start Date Coverage End Date EMERY DE LEON [facility] [address] [facility] [address] LULA GUTIERREZ MEDICARE Part A and B [address] [facility] [address] [phone] LULA GUTIERREZ self
--- OUTSIDE RECORDS SUMMARY | 2020-08-18 15:09 | CCD | Continuity of Care Document ---
Author Organization Unknown Address Unknown Phone Unavailable Care Team Providers Care Supply Cataloguer Name Role Phone Paz Munguia [employer] TE[employer]ER [employer] [phone] Problems Active Problems Provider Date Benign hypertensive heart disease without congestive h eart failure Darryl Zapata MD Onset: 06/01/2014 Electrocardiogram abnormal Darryl Zapata MD Onset: 2013 Premature beats Piedad Pena PA-C Onset: 02/11/2018 Mitral valve disorder Piedad Pena PA-C Onset: 08/02/2017 Aortic valve disorder Piedad Pena PA-C Onset: 08/02/2017 Pure hypercholesterolemia Mary Bledsoe NP Onset: 015 Dietary management surveillance Piedad Pena PA-C Onset: 08/02/2017 Social History Type Date Description Comments Sex Unknown ETOH Use Does not consume alcohol Tobacco Use Start: Unknown End: Unknown Patient is a former smoker Smoked <1 ppd for 19 years, quit in 1981 Smoking Status Reviewed: 01/04/20 Patient is a former smoker Sm oked <1 ppd for 19 years, quit in 1981 Exercise Type/Frequency Does yardwork sporadical ly Exercise Type/Frequency Does housework daily Exercise Type/Frequency 30 minute Exercise routi ne daily Exercise Limitations Joint Pain right knee Allergies, Adverse Reactions, Alerts Active Allergies Reaction [...] Available Vital Signs Date Vital Result Comment 01/04/2020 8:43am Weight 150.00 lb Home Weight 149lb home weight Height 66 inches 5'6" BMI (Body Mass Index) 24.2 kg/m2 Heart Rate 64 /min Regular Respiratory Rate 16 /min BP Systolic Right Arm 142 mmHg sitting, regular c uff BP Diastolic Right Arm 74 mmHg sitting, regular cuff BP Systolic Left Arm 140 mmHg sitting BP Diastolic Left Arm 72 mmHg sitting 07/20/2019 10:21am Weight 153.00 lb Home Weight 153lb home weight Height 66 inches 5'6" BMI (Body Mass Index) 24.7 kg/m2 Heart Rate 56 /min Regular Respiratory Rate 16 /min BP Systolic Right Arm 136 mmHg Sitting, regular c uff BP Diastolic Right Arm 80 mmHg Sitting, regular cuff BP Systolic Left Arm 136 mmHg Sitting BP Diastolic Left Arm 76 mmHg Sitting Results Test Acquired Date Facility Test Result H/L Range Note Hemoglobin A1c 04/27/2020 [facility] - not interfaced (315)- - Hemoglobin A1c 5.5 Laboratory test finding 04/27/2020 [facility] - not interf aced (315)- - Thyroid Stimulating Hormone 0.454 Procedures Date Code Description Status 04/19/2020 03288 Echocardiogram 2-D Doppler Color Completed 01/04/2020 48929 ECG 12-Lead Completed Medical Devices Description No Information Available Encounters Type Date Location Provider Dx Diagnosis Office Visit 01/04/2020 8:45a Main Office Piedad Pena PA-C I11.9 Hypertensive heart disease without heart failure R94.31 Abnormal electrocardiogram [ ECG] [EKG] I49.3 Ventricular premature depola rization I34.0 Nonrheumatic mitral (valve) insufficiency I35.1 Nonrheumatic aortic (valve) insufficiency E78.00 Pure hypercholesterolemia, u nspecified Assessments Date Code Description Provider 04/19/2020 I35.1 Nonrheumatic aortic (valve) insu fficiency ECHO 04/19/2020 I34.0 Nonrheumatic mitral (valve) insu fficiency ECHO 01/04/2020 I11.9 Hypertensive heart disease witho ut heart failure Piedad Pena PA-C 01/04/2020 R94.31 Abnormal electrocardiogram [ECG] [EKG] Piedad Pena PA-C 01/04/2020 I49.3 Ventricular premature depolariza tion Piedad Pena PA-C 01/04/2020 I34.0 Nonrheumatic mitral (valve) insu fficiency Piedad Pena PA-C 01/04/2020 I35.1 Nonrheumatic aortic (valve) insu fficiency Piedad Pena PA-C 01/04/2020 E78.00 Pure hypercholesterolemia, unspe cified Piedad Pena PA-C Plan of Treatment Future Appointment(s):* 07/06/2020 1:30 pm - Piedad Pena PA-C at Main Office 01/04/2020 - Piedad Pena PA-C* I11.9 Hypertensive heart disease without heart failure * R94.31 Abnormal electrocardiogram [ECG] [EKG] * I49.3 Ventricular premature depolarization * I34.0 Nonrheumatic mitral (valve) insufficiency * I35.1 Nonrheumatic aortic (valve) insufficiency * E78.00 Pure hypercholesterolemia, unspecified * All * Follow up:* 6 month follow up. Functional Status Functional Condition Comment Date Status Independent with all ADL's Activ e Mental Status Description No Information Available Referrals Description No Information Available
--- OUTSIDE RECORDS SUMMARY | 2020-08-18 15:09 | CCD ---
Author Author [facility] Organization [facility] Address Unknown Phone Unavailable Care Team Providers Care Residential Subcontractor Name Role Phone Enriquew, Lisa Herbert PA Unavailable Unavailable Symenow, Lisa Herbert PA Unavailable Unavailable Symenow, Lisa Herbert PA Unavailable Unavailable Symenow, Lisa Herbert PA Unavailable Unavailable Symenow, Lisa Herbert PA Unavailable Unavailable Symenow, Lisa Herbert PA Unavailable Unavailable Symenow, Lisa Herbert PA Unavailable Unavailable Symenow, Lisa Herbert PA Unavailable Unavailable Symenow, Lisa Herbert PA Unavailable Unavailable Symenow, Lisa Herbert PA Unavailable Unavailable Symenow, Lisa Herbert PA Unavailable Unavailable Symenow, Lisa Piedad PA Unavailable Unavailable Symenow, Lisa Piedad PA Unavailable Unavailable Symenow, Lisa Bishope PA Unavailable Unavailable Symenow, Lisa Piedad PA Unavailable Unavailable Symenow, Lisa Piedad PA Unavailable Unavailable Symenow, Lisa Piedad PA Unavailable Unavailable Symenow, Lisa Piedad PA Unavailable Unavailable Symenow, Lisa Piedad PA Unavailable Unavailable Symenow, Lisa Piedad PA Unavailable Unavailable Symenow, Lisa Piedad PA Unavailable Unavailable Symenow, Lisa Piedad PA Unavailable Unavailable Symenow, Lisa Piedad PA Unavailable Unavailable Symenow, Lisa Piedad PA Unavailable Unavailable Symenow, Lisa Piedad PA Unavailable Unavailable Symenow, Lisa Piedad PA Unavailable Unavailable Symenow, Lisa Piedad PA Unavailable Unavailable Symenow, Lisa Piedad PA Unavailable Unavailable Symenow, Lisa Piedad PA Unavailable Unavailable Symenow, Lisa Piedad PA Unavailable Unavailable Symenow, Lisa Piedad PA Unavailable Unavailable Symenow, Lisa Piedad PA Unavailable Unavailable Symenow, Lisa Piedad PA Unavailable Unavailable Symenow, Lisa Piedad PA Unavailable Unavailable Symenow, Lisa Piedad PA Unavailable Unavailable Symenow, Lisa Piedad PA Unavailable Unavailable Hendrix, M Barratt PA Unavailable Unavailable Hendrix, M Barratt PA Unavailable Unavailable Hendrix, M Barratt PA Unavailable Unavailable Hendrix, M Barratt PA Unavailable Unavailable Hendrix, M Barratt PA Unavailable Unavailable Hendrix, M Barratt PA Unavailable Unavailable Hendrix, M Barratt PA Unavailable Unavailable Hendrix, M Barratt PA Unavailable Unavailable Hendrix, M Barratt PA Unavailable Unavailable Hendrix, M Barratt PA Unavailable Unavailable Hendrix, M Barratt PA Unavailable Unavailable Hendrix, M Barratt PA Unavailable Unavailable Hendrix, M Barratt PA Unavailable Unavailable Hendrix, M Barratt PA Unavailable Unavailable Hendrix, M Barratt PA Unavailable Unavailable Hendrix, M Barratt PA Unavailable Unavailable Hendrix, M Barratt PA Unavailable Unavailable Hendrix, M Barratt PA Unavailable Unavailable Hendrix, M Barratt PA Unavailable Unavailable Hendrix, M Barratt PA Unavailable Unavailable Hendrix, M Barratt PA Unavailable Unavailable Hendrix, M Barratt PA Unavailable Unavailable Hendrix, M Barratt PA Unavailable Unavailable Hendrix, M Barratt PA Unavailable Unavailable Hendrix, M Barratt PA Unavailable Unavailable Hendrix, M Barratt PA Unavailable Unavailable Hendrix, M Barratt PA Unavailable Unavailable Re-disclosure Warning The records that you are about to access may contain information from federally-assisted alcohol or drug abuse programs. If such information is present, then the following federally mandated warning applies: This information has been disclosed to you from records protected by federal confidentiality rules (42 CFR part 2). The federal rules prohibit you from making any further disclosure of this information unless further disclosure is expressly permitted by the written consent of the person to whom it pertains or as otherwise permitted by 42 CFR part 2. A general authorization for the release of medical or other information is NOT sufficient for this purpose. The Federal rules restrict any use of the information to criminally investigate or prosecute any alcohol or drug abuse patient.The records that you are about to access may contain highly sensitive health information, the redisclosure of which is protected by Article 27-F of the [facility] Public Health law. If you continue you may have access to information: Regarding HIV / AIDS; Provided by facilities licensed or operated by the [facility] Office of Mental Health; or Provided by the [facility] Office for People With Developmental Disabilities. If such information is present, then the following [facility] mandated warning applies: This information has been disclosed to you from confidential records which are protected by state law. State law prohibits you from making any further disclosure of this information without the specific written consent of the person to whom it pertains, or as otherwise permitted by law. Any unauthorized further disclosure in violation of state law may result in a fine or fpc sentence or both. A general authorization for the release of medical or other information is NOT sufficient authorization for further disc losure. Allergies and Adverse Reactions Type Description Substance Reaction Status Data Source(s ) Drug allergy Plaquenil Hydroxychloroquine Rash Active eCW1 ([facility]) pravastatin pravastatin pravastatin leg cramps Active eCW1 ([facility]) Sulfacetamide Sod-Sulfur Sulfacetamide Sod-Sulfur Sulfacetamide Sod-Sulfur Rash Active eCW1 ([facility]) Family History Family Member Name Family Member Gender Family Member Status Date o f Status Description Data Source(s) Unknown Male Problem MEDENT ([facility]) Encounters Encounter Providers Location Date Indications Data Source(s ) Outpatient Attender: Piedad OSBORNE Main Office 07/06/2020 12:30:00 PM EST MEDENT ([facility]) [place] [address] [facility] [address] 06/13/2020 12:00:00 AM EST eCW1 ([facility]) [place] [address] [facility] [address] 06/01/2020 12:00:00 AM EST [facility]CW1 ([facility]) [place] [address] [facility] [address] 05/26/2020 12:00:00 AM EST eCW1 ([facility]) [place] [address] [facility] [address] 05/13/2020 12:00:00 AM EST [facility]CW[facility] [place] [address] [facility] [address] 05/12/2020 12:00:00 AM EST eCW1 ([facility]) [place] [address] [facility] [address] 05/03/2020 12:00:00 AM EST eCW1 ([facility]) [place] [address] [facility] [address] 04/13/2020 12:00:00 AM EDT eCW1 ([facility]) Outpatient Attender: Mendoza OSBORNE Physical Therapy 10:00:00 AM EDT MEDENT ([facility]) [place] [address] [facility] [address] 01/13/2020 12:00:00 AM EDT eCW1 ([facility]) [place] [address] [facility] [address] 01/13/2020 12:00:00 AM EDT eCW1 ([facility]) Outpatient Attender: Piedad OSBORNE Main Office 01/04/2020 08:45:00 AM EDT MEDENT ([facility]) [place] [address] [facility] [address] 12/30/2019 12:00:00 AM EDT eCW1 ([facility] [address] [facility] [address] 12/15/2019 12:00:00 AM EDT eCW1 ([facility]) [facility] [place] [address] [facility] [address] 11/05/2019 12:00:00 AM EDT eCW1 ([facility]) [facility] Hank [address] [facility] [address] 10/15/2019 12:00:00 AM EDT eCW1 ([facility]) [facility] Rhe[facility]ology Center [address] [place] [address] 10/02/2019 12:00:00 AM EDT eCW1 ([facility]) [facility] Hank [address] [place] [address] [address] 08/31/2019 12:00:00 AM EDT eCW1 ([facility]) [facility] [address] [place] [address] [address] 08/11/2019 12:00:00 AM EST eCW1 ([facility]) Outpatient Attender: Piedad OSBORNE Main Office 07/20/2019 09:15:00 AM EST MEDENT ([facility]) [facility] Rheumatology [address] [place] [address] 07/02/2019 12:00:00 AM EST eCW1 ([facility]) [facility] Rheumatology Center [address] [place] [address] 06/29/2019 12:00:00 AM EST eCW1 ([facility]) Immunizations Vaccine Date Status Description Data Source(s) COVID-19 VACCINE, MRNA-1273, LNP-S (MODERNA)/PF 08/17/2020 1 2:00:00 AM EST completed [facility] COVID-19 VACCINE, MRNA-1273, LNP-S (MODERNA)/PF 07/20/2020 1 2:00:00 AM EST completed [facility] influenza, recombinant, quadrIvalent,injectable, prese rvative free 04/13/2020 09:13:00 AM EDT completed eCW1 ([facility]) influenza, recombinant, quadrIvalent,injectable, prese rvative free 04/13/2020 09:13:00 AM EDT completed eCW1 ([facility]) influenza, recombinant, quadrIvalent,injectable, prese rvative free 04/13/2020 09:13:00 AM EDT completed eCW1 ([facility]) influenza, recombinant, quadrIvalent,injectable, prese rvative free 04/13/2020 09:13:00 AM EDT completed eCW1 ([facility]) influenza, recombinant, quadrIvalent,injectable, prese rvative free 04/13/2020 09:13:00 AM EDT completed eCW1 ([facility]) influenza, recombinant, quadrIvalent,injectable, prese rvative free 04/13/2020 09:13:00 AM EDT completed eCW1 ([facility]) influenza, recombinant, quadrIvalent,injectable, prese rvative free 04/13/2020 09:13:00 AM EDT completed eCW1 ([facility]) Medications Medication Brand Name Start Date Product Form Dose Route Admi nistrative Instructions Pharmacy Instructions Status Indications Reaction Description Data Source(s) Cholecalciferol 1000 UNT Oral Tablet Vitamin D 07/19/2019 12:00:00 A M EST ORAL active [facility] ([facility]) Vitamin B 12 1 MG Extended Release Oral Tablet Vitamin B12 07/19/2019 12:00:00 AM EST ORAL active [facility] ([facility]) Insurance Providers Payer name Policy type / Coverage type Policy ID Covered constitution party ID Covered constitution party's relationship to yoon Policy Yoon Plan Information MEDICARE [id number] [facility] FED[employer]AL [employer]PLOYEE PROGRAM [id number] SP [id number] SELF PAY ONLY [id number] SP [id number] [facility] [employer]EE [employer] [id number] SP [id number] [facility] [employer] [id number] SP [id number] ANSI-Commercial [id number] [facility]-Medicare Part B [id number] MEDICARE [id number] A ANSI-Commercial [id number] ANSI-Medicare Part B [id number] ANSI-Medicare Part B [id number] ANSI-Commercial [id number] ANSI-Medicare Part B [id number] ANSI-Commercial [id number] ANSI-Medicare Part B [id number] ANSI-Commercial [id number] ANSI-Commercial [id number] ANSI-Medicare Part B [id number] Medicare (Part B) Medicare Primary [id number] Self [id number] [facility] Part B [id number] Self [id number] Medicare (Part B) Medicare Primary [id number] Self [id number] ANSI-Commercial [id number] ANSI-Medicare Part B [id number] ANSI-Medicare Part B [id number] ANSI-Commercial [id number] ANSI-Commercial [id number] ANSI-Medicare Part B [id number] ANSI-Commercial [id number] ANSI-Medicare Part B [id number] ANSI-Medicare Part B [id number] ANSI-Commercial [id number] ANSI-Medicare Part B [id number] ANSI-Commercial [id number] ANSI-Medicare Part B [id number] ANSI-Commercial [id number] Medicare (Part B) Medicare Primary [id number] Self [id number] Medicare (Part B) Medicare Primary [id number] Self [id number] ANSI-Commercial [id number] ANSI-Medicare Part B [id number] Medicare Part B of [place] Other 0 Se lf 0 BCBS of [facility] Other 0 Self 0 BCBS OF [facility] [id number] S [id number] [employer] [id number] S [id number] MEDICARE - [place] [id number] S [id number] Medicare (Part B) Medicare Primary [id number] Self [id number] [employer] FEDERAL EMPLOYEE PROGRAM [id number] SP [id number] MEDICARE [id number] SP [id number] A [facility] [id number] SP [id number] [facility] [id number] SP [id number] Medicare (Part B) Medicare Primary [id number] Self [id number] Medicare (Part B) Medicare Primary [id number] Self [id number] Medicare (Part B) Medicare Primary Self BC/BS Federal Medigap Part B Self Medicare Medicare Primary Self BC BS [place] FEDERAL [id number] SP [id number] A [id number] Problems, Conditions, and Diagnoses Code Display Name Description Problem Type Effective Dates Data Source(s) B34.9 [id number] Viral syndrome Problem 01/13/2020 12:00:00 A M EDT eCW1 ([facility]) L40.50 [id number] Psoriatic arthritis Problem 07/02/2019 12:00 :00 AM EST eCW1 ([facility]) L40.50 [id number] Psoriatic arthritis Problem 07/02/2019 12:00 :00 AM EST eCW1 ([facility]) Surgeries/Procedures Procedure Description Date Indications Data Source(s) ECG ROUTINE ECG W/LEAST 12 LDS W/I&R 07/06/2020 12:00: 00 AM EST MEDENT ([facility]) ECHO TTHRC R-T 2D W/WOM-MODE COMPL SPEC&COLR DOP 04/19 12:00:00 AM EDT MEDENT ([facility]) ARTHROCENTESIS ASPIR&/INJECTION MAJOR JT/BURSA 020 12:00:00 AM EDT MEDENT ([facility] ECG ROUTINE ECG W/LEAST 12 LDS W/I&R 01/04/2020 12:00: 00 AM EDT MEDENT ([facility]) ECG ROUTINE ECG W/LEAST 12 LDS W/I&R 07/20/2019 12:00: 00 AM EST MEDENT ([facility]) ARTHROCENTESIS ASPIR&/INJECTION MAJOR JT/BURSA 020 12:00:00 AM EST MEDENT ([facility]) Office Visit, Est Pt., Level 3 FC 07/02/2019 12:00:00 AM EST eCW1 ([facility]) Office Visit, Est Pt., Level 4 PC 07/02/2019 12:00:00 AM EST eCW1 ([facility]) VENIPUNCT, ROUTINE* 07/02/2019 12:00:00 AM EST eCW1 ([facility]) Results ID Date Data Source [id number] 07/08/2020 08:43:00 AM EST MEDENT ([facility] Name Value Range Interpretation Code Description Data Lilo rce(s) Supporting Document(s) Glucose, Fasting 96 mg/dL 70-100 MEDENT ([facility]) Blood Urea Nitrogen 24 mg/dL 7-18 MEDENT ([facility]) Glomerular Filtration Rate Laboratory test result MEDENT ([facility]) <content>Units are mL/min/1.73 m2</content>
<content></content>
<content>Chronic Kidney Disease Staging per NKF:</content>
<content></content>
<content>Stage I & II GFR >=60 Normal to Mildly Decreased</content>
<content>Stage III GFR 30-59 Moderately Decreased</content>
<content>Stage IV GFR 15-29 Severely Decreased</content>
<content>Stage V GFR <15 Very Little GFR Left</content>
<content>ESRD GFR <15 on HAT BLOCKER</content>
<content></content> Creatinine For GFR 0.76 mg/dL 0.55-1.30 MEDENT ([facility]) Potassium Serum 4.3 meq/L 3.5-5.1 MEDENT ([facility]) Sodium Level 141 meq/L 136-145 MEDENT ([facility]) Chloride Level 106 meq/L 98-107 MEDENT ([facility]) Carbon Dioxide Level 29 meq/L 21-32 MEDENT ([facility]) Anion Gap 6 meq/L 8-16 [facility] Calcium Level 9.0 mg/dL 8.8-10.2 MEDENT ([facility]) ID Date Data Source [id number] 04/27/2020 03:42:00 PM EST MEDENT ([facility]) Name Value Range Interpretation Code Description Data Lilo rce(s) Supporting Document(s) Thyroid Stimulating Hormone 0.454 ME DENT ([facility]) ID Date Data Source [id number] 04/27/2020 03:42:00 PM EST MEDENT ([facility]) Name Value Range Interpretation Code Description Data Lilo rce(s) Supporting Document(s) Hemoglobin A1c/Hemoglobin.total in Blood 5.5 MEDENT ([facility]) ID Date Data Source [id number] 01/13/2020 02:06:00 PM EDT [facility] Name Value Range Interpretation Code Description Data Lilo rce(s) Supporting Document(s) SARS coronavirus 2 RNA [facility] This lab was ordered by [facility] and reported by [facility]. ID Date Data Source Coronavirus 2019 NOSE (COVID) 01/13/2020 03:35:47 AM EDT eCW 1 ([facility]) Name Value Range Interpretation Code Description Data Lilo rce(s) Supporting Document(s) Coronavirus 2019 NOSE (COVID) eCW1 ([facility]) ID Date Data Source [id number] 12/24/2019 01:59:00 PM EDT MEDENT ([facility]) Name Value Range Interpretation Code Description Data Lilo rce(s) Supporting Document(s) Thyroid Stimulating Hormone 0.279 ME DENT ([facility]) ID Date Data Source [id number] 12/24/2019 01:59:00 PM EDT MEDENT ([facility]) Name Value Range Interpretation Code Description Data Lilo rce(s) Supporting Document(s) Alanine aminotransferase [Enzymatic activity/volume] in Serum or Pl asma 22 MEDENT ([facility]) Albumin [Mass/volume] in Serum or Plasma 4.2 MEDENT ([facility]) Carbon dioxide, total [Moles/volume] in Serum or Plasma 28 MEDENT ([facility]) Chloride [Moles/volume] in Serum or Plasma 108 MEDENT ([facility]) Calcium [Mass/volume] in Serum or Plasma 8.7 [facility] Protein [Mass/volume] in Serum or Plasma 6.7 [facility] ([facility]) Potassium [Moles/volume] in Serum or Plasma 4.1 MEDENT ([facility]) Alkaline phosphatase [Enzymatic activity/volume] in Serum or Plasma 7 5 MEDENT ([facility]) Sodium 140 MED[facility] Aspartate aminotransferase [Enzymatic activity/volume] in Serum or Plasma 19 MEDENT ([facility]) Glucose 108 70-100 MED[facility] Urea nitrogen [Mass/volume] in Serum or Plasma 20 MEDENT ([facility]) Creatinine For GFR 0.78 MEDENT ([facility]) ID Date Data Source [id number] 12/24/2019 01:59:00 PM EDT MEDENT ([facility]) Name Value Range Interpretation Code Description Data Lilo rce(s) Supporting Document(s) White Blood Count 6.2 4.0-10.0 MEDENT ([facility]) Red Blood Count 4.00 4.00-5.40 MEDENT ([facility]) Platelets 175 150-450 MEDENT ([facility] Hemoglobin 12.6 MEDENT ([facility]) Hematocrit 38.8 MEDENT ([facility]) ID Date Data Source [id number] 12/24/2019 08:56:00 AM EDT MEDENT ([facility]) Name Value Range Interpretation Code Description Data Lilo rce(s) Supporting Document(s) Triglycerides 68 MEDENT ([facility]) Cholesterol 149 [facility] Chol/HDL Ratio 2.069 MEDENT ([facility]) HDL 72 MED[facility] ([facility] Cholesterol in LDL [Mass/volume] in Serum or Plasma by calculation 63 MEDENT ([facility]) ID Date Data Source [id number] 07/02/2019 09:23:00 AM EST MEDENT ([facility]) Name Value Range Interpretation Code Description Data Lilo rce(s) Supporting Document(s) Alanine aminotransferase [Enzymatic activity/volume] in Serum or Pl asma 28 MEDENT ([facility]) Calcium [Mass/volume] in Serum or Plasma 9.1 MEDENT ([facility]) Albumin [Mass/volume] in Serum or Plasma 4.2 MEDENT ([facility]) Carbon dioxide, total [Moles/volume] in Serum or Plasma 27 MEDENT ([facility]) Potassium [Moles/volume] in Serum or Plasma 4.5 MEDENT ([facility]) Chloride [Moles/volume] in Serum or Plasma 107 MEDENT ([facility]) Alkaline phosphatase [Enzymatic activity/volume] in Serum or Plasma 8 4 MED[facility] ([facility]) Sodium 141 MED[facility] Urea nitrogen [Mass/volume] in Serum or Plasma 28 MEDENT ([facility]) Aspartate aminotransferase [Enzymatic activity/volume] in Serum or Plasma 24 [facility] ([facility]) Protein [Mass/volume] in Serum or Plasma 6.6 [facility] ([facility]) Creatinine For GFR 0.96 [facility] ([facility]) Glucose 91 70-100 [facility] ([facility] ID Date Data Source [id number] 07/02/2019 09:23:00 AM EST [facility] ([facility]) Name Value Range Interpretation Code Description Data Lilo rce(s) Supporting Document(s) Red Blood Count 4.01 4.00-5.40 [facility] ([facility]) Platelets 193 150-450 [facility] ([facility] White Blood Count 7.3 4.0-10.0 [facility] ([facility]) Hemoglobin 12.3 [facility] ([facility]) Hematocrit 38.3 [facility] ([facility]) ID Date Data Source ERYTHROCYTE SEDIMENTATION RATE 07/02/2019 12:00:00 AM EST eC W1 ([facility]) Name Value Range Interpretation Code Description Data Lilo rce(s) Supporting Document(s) 6 0-30 ERYTHROCYTE SEDIMENTATION RATE eCW1 ([facility]) ID Date Data Source C REACTIVE PROTEIN QUANTITATIV (At [facility]) 07/02/2019 12:00 :00 AM EST eCW1 ([facility]) Name Value Range Interpretation Code Description Data Lilo rce(s) Supporting Document(s) 0.41 0.00-0.30 C REACTIVE PROTEIN QUANTI TATIV eCW1 ([facility]ly [facility]) ID Date Data Source Comprehensive Metabolic Profile (CMP) 07/02/2019 12:00:00 AM EST eCW1 ([facility]) Name Value Range Interpretation Code Description Data Lilo rce(s) Supporting Document(s) 28 7-18 BLOOD UREA NITROGEN eCW1 ([facility]) 91 70-100 GLUCOSE, FASTING eCW1 ([facility]) > 60.0 >39 GLOMERULAR FILTRATION RATE eCW 1 ([facility]) 141 136-145 SODIUM LEVEL eCW1 ([facility]) 107 98-107 CHLORIDE LEVEL eCW1 ([facility]) 0.96 0.55-1.30 CREATININE FOR GFR eCW1 ([facility]) 4.5 3.5-5.1 POTASSIUM SERUM eCW1 (Count includes the [facility]) 24 7-37 AST/SGOT eCW1 ([facility]) 9.1 8.8-10.2 CALCIUM LEVEL eCW1 ([facility]) 27 21-32 CARBON DIOXIDE LEVEL eCW1 ([facility]) 28 12-78 ALT/SGPT eCW1 ([facility]) 0.7 0.2-1.0 BILIRUBIN,TOTAL eCW1 (Count includes the [facility]) 4.2 3.2-5.2 ALBUMIN eCW1 ([facility]) 6.6 6.4-8.2 TOTAL PROTEIN eCW1 ([facility]) 84 45-117 ALKALINE PHOSPHATASE eCW1 ([facility]) 1.75 1.00-1.93 ALBUMIN/GLOBULIN RATIO eCW1 ([facility]) ID Date Data Source CBC with Differential 07/02/2019 12:00:00 AM EST eCW1 [facility]) Name Value Range Interpretation Code Description Data Lilo rce(s) Supporting Document(s) 7.3 4.0-10.0 WHITE BLOOD COUNT eCW1 ([facility]) 4.01 4.00-5.40 RED BLOOD COUNT eCW1 (Count includes the [facility]) 12.3 12.0-15.5 HEMOGLOBIN eCW1 ([facility]) 30.7 27.0-33.0 MEAN CORPUSCULAR HEMOGLOB IN eCW1 ([facility]) 95.5 80.0-96.0 MEAN CORPUSCULAR VOLUME e CW1 ([facility]) 38.3 36.0-47.0 HEMATOCRIT eCW1 ([facility]) 14.1 11.5-14.5 RED CELL DISTRIBUTION WID TH eCW1 ([facility]) 32.1 32.0-36.5 MEAN CORPUSCULAR HGB CONC eCW1 ([facility]) 193 150-450 PLATELET COUNT, AUTOMATED eCW1 ([facility]) 52.3 36.0-66.0 NEUTROPHILS % eCW1 ([facility]) 7.7 0.0-5.0 MONO % eCW1 ([facility]) 37.7 24.0-44.0 LYMPH % eCW1 ([facility]) 1.4 0.0-3.0 EOS % eCW1 ([facility]) 0.5 0.0-1.0 BASO % eCW1 ([facility]) 0.1 0.0-0.5 EOS # eCW1 ([facility]) 3.8 1.5-8.5 NEUTROPHILS # eCW1 ([facility]) 0.6 0.0-0.8 MONO # eCW1 ([facility]) 2.8 1.5-5.0 LYMPH # eCW1 ([facility]) 0.0 0.0-0.2 BASO # eCW1 ([facility]) Procedure Social History Code Duration Value Status Description Data Source(s ) Smoking 07/06/2020 12:00:00 AM EST Patient is a former smoker completed Patient is a former smoker [facility] ([facility]) Smoking 05/03/2020 12:00:00 AM EST Former Smoker completed Former Smoker eCW1 ([facility]) Smoking 05/03/2020 12:00:00 AM EST Former Smoker completed Former Smoker eCW1 ([facility]) Smoking 05/03/2020 12:00:00 AM EST Former Smoker completed Former Smoker eCW1 ([facility]) Smoking 05/03/2020 12:00:00 AM EST Former Smoker completed Former Smoker eCW1 ([facility]) Smoking 05/03/2020 12:00:00 AM EST Former Smoker completed Former Smoker eCW1 ([facility]) Smoking 05/03/2020 12:00:00 AM EST Former Smoker completed Former Smoker eCW1 ([facility]) Smoking 01/13/2020 12:00:00 AM EDT Former Smoker completed Former Smoker eCW1 ([facility]) Smoking 01/13/2020 12:00:00 AM EDT Former Smoker completed Former Smoker eCW1 ([facility]) Smoking 01/13/2020 12:00:00 AM EDT Former Smoker completed Former Smoker eCW1 ([facility]) Smoking 01/13/2020 12:00:00 AM EDT Former Smoker completed Former Smoker eCW1 ([facility]) Vital Signs ID Date Data Source UNK Name Value Range Interpretation Code Description Data Source(s) Oxygen saturation in Arterial blood by Pulse oximetry 97 % 97 % [facility] ([facility]) Diastolic blood pressure--sitting 68 mm[Hg] 68 mm[Hg] [facility] ([facility]) Systolic blood pressure--sitting 132 mm[Hg] 132 mm[Hg] [facility] ([facility]) Respiratory rate 16 /min 16 /min [facility] ( [facility]) Heart rate 63 /min 63 /min [facility] ([facility]) Body mass index (BMI) [Ratio] 24.5 kg/m2 24.5 k g/m2 [facility] ([facility]) Body height 66 [in_i] 66 [in_i] [facility]) 5'6" Body weight 152.00 [lb_av] 152.00 [lb_av] MEDEN T ([facility]) Diastolic blood pressure 75 mm[Hg] 75 mm[Hg] eCW1 ([facility]) Systolic blood pressure 187 mm[Hg] 187 mm[Hg] e CW1 ([facility]) Body temperature 98.1 [degF] 98.1 [degF] eCW1 ( [facility]) Respiratory rate 18 /min 18 /min eCW1 ([facility]) Heart rate 63 /min 63 /min eCW1 (Count includes the [facility]) Body mass index (BMI) [Ratio] 25.68 kg/m2 25.68 kg/m2 eCW1 ([facility]) Body height 64.5 [in_i] 64.5 [in_i] eCW1 ([facility]) Body weight 152 [lb_av] 152 [lb_av] eCW1 ([facility]) Diastolic blood pressure 72 mm[Hg] 72 mm[Hg] [facility] ([facility]) sitting Systolic blood pressure 140 mm[Hg] 140 mm[Hg] M EDENT ([facility]) sitting Diastolic blood pressure 74 mm[Hg] 74 mm[Hg] [facility] ([facility]) sitting, regular cuff Systolic blood pressure 142 mm[Hg] 142 mm[Hg] M EDENT ([facility]) sitting, regular cuff Respiratory rate 16 /min 16 /min [facility] ( [facility]) Heart rate 64 /min 64 /min [facility] ([facility]) Regular Body mass index (BMI) [Ratio] 24.2 kg/m2 24.2 k g/m2 [facility] ([facility]) Body height 66 [in_i] 66 [in_i] [facility] ([facility]) 5'6" Body weight 150.00 [lb_av] 150.00 [lb_av] MEDEN T ([facility]) Diastolic blood pressure 78 mm[Hg] 78 mm[Hg] eCW1 ([facility]) Systolic blood pressure 157 mm[Hg] 157 mm[Hg] e CW1 ([facility]) Body temperature 97.9 [degF] 97.9 [degF] eCW1 ( [facility]) Respiratory rate 18 /min 18 /min eCW1 ([facility]) Heart rate 63 /min 63 /min eCW1 (Count includes the [facility]) Body mass index (BMI) [Ratio] 25.85 kg/m2 25.85 kg/m2 eCW1 ([facility]) Body height 64.5 [in_i] 64.5 [in_i] eCW1 ([facility]) Body weight 153 [lb_av] 153 [lb_av] eCW1 ([facility]) Diastolic blood pressure 76 mm[Hg] 76 mm[Hg] [facility] ([facility]) Sitting Systolic blood pressure 136 mm[Hg] 136 mm[Hg] M EDENT ([facility]) Sitting Diastolic blood pressure 80 mm[Hg] 80 mm[Hg] [facility] ([facility]) Sitting, regular cuff Systolic blood pressure 136 mm[Hg] 136 mm[Hg] M EDENT ([facility]) Sitting, regular cuff Respiratory rate 16 /min 16 /min [facility] ( [facility]) Heart rate 56 /min 56 /min [facility] ([facility]) Regular Body mass index (BMI) [Ratio] 24.7 kg/m2 24.7 k g/m2 [facility] ([facility]) Body height 66 [in_i] 66 [in_i] [facility] ([facility]) 5'6" Body weight 153.00 [lb_av] 153.00 [lb_av] MEDEN T ([facility]) Diastolic blood pressure 58 mm[Hg] 58 mm[Hg] eCW1 ([facility]) Systolic blood pressure 122 mm[Hg] 122 mm[Hg] e CW1 ([facility]) Body temperature 98.6 [degF] 98.6 [degF] eCW1 ( [facility]) Respiratory rate 18 /min 18 /min eCW1 ([facility]) Heart rate 68 /min 68 /min eCW1 (Count includes the [facility]) Body mass index (BMI) [Ratio] 26.53 kg/m2 26.53 kg/m2 eCW1 ([facility]) Body height 64.5 [in_us] 64.5 [in_us] eCW1 ([facility]) Body weight Measured 157.0 [lb_av] 157.0 [lb_av ] eCW1 ([facility])
--- OUTSIDE RECORDS SUMMARY | 2020-08-18 15:09 | CCD | Continuity of Care Document ---
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 - not interfaced (315)- - Hemoglobin A1c 5.5 Laboratory test finding 04/27/2020 [facility] - not interf aced (315)- - Thyroid Stimulating Hormone 0.454 Procedures Date Code Description Status 07/06/2020 67165 ECG 12-Lead Completed 04/19/2020 53060 Echocardiogram 2-D Doppler Color Completed Medical Devices [...] PA-C 07/06/2020 I49.3 Ventricular premature depolariza tion Piedad Walsh PA-C 07/06/2020 I35.1 Nonrheumatic aortic (valve) insu fficiency [...] PA-C* I11.9 Hypertensive heart disease without heart failure* New Labs:* Basic Metabolic Profile, Scheduled: 07/06/20 * R94.31 Abnormal electrocardiogram [ECG] [EKG] * [...]
--- OUTSIDE RECORDS SUMMARY | 2020-08-18 15:09 | CCD ---
Author Author [facility] Organization [facility] Address Unknown Phone Unavailable Care Team Providers Care Die Designer Name Role Phone Marilu Munguia Unavailable PROBLEMS Type Condition ICD9-CM Code [id number] Code Onset Dates Condition S tatus SNOMED Code Notes Problem Cyclic neutropenia D70.4 Active 351263900 Problem Impacted cerumen, unspecified laterality H61.20 Active 51658018 Problem Unilateral primary osteoarthritis, unspecified knee M17.10 Active 235474692 Problem Need for prophylactic vaccination and inoculatio n against influenza Z23 Active 884681653 Problem 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 Active 3333 9001 Problem Other psoriasis L40.8 Active 6616704 Problem Lipid storage disorder, unspecified E75.6 Acti ve 391247396 Problem Essential (primary) hypertension I10 Active 19441602 Problem Anemia, unspecified D64.9 Active 723276763 Problem GERD (gastroesophageal reflux disease) K21.9 A ctive 933350569 Problem Warts B07.9 Active 95461854 Problem Psoriatic arthritis L40.50 Active 007653314 Problem Hypothyroidism, unspecified E03.9 Active 4093 0008 Problem Senile osteoporosis M81.0 Active 57462029 Problem Viral syndrome B34.9 Active 69352736 Problem Vitamin D deficiency, unspecified E55.9 Active 16634640 Problem Herpes simplex without mention of complication B00 .9 Active 12410613 Problem Multiple chronic diseases R69 Active 548555 2657052 Problem Hyperlipidemia, unspecified hyperlipidemia type E7 8.5 Active 46883474 Problem History of psoriatic arthritis Z87.2 Active 2 80946240 Problem Primary osteoarthritis involving multiple joints M 15.0 Active 450858784 ALLERGIES Allergen (clinical drug ingredient) Drug/Non Drug Allergy do cumented on EMR Reaction Allergy Type Onset Date Status Sulfacetamide Sod-Sulfur Rash Drug Allergy Active hydroxychloroquine Plaquenil([facility] Code:[address]-84) Rash Drug Allergy Active pravastatin leg cramps Non Drug Allergy Active ENCOUNTERS from 1945 to 2020-06-14 Encounter Location Date Provider Diagnosis [facility] [address] [place] [address] May Marilu Munguia IMMUNIZATIONS Vaccine Route Administration [...] ministered Influenza (High Dose 65 & up) IM Intramuscular Apr 19, 2015 A dministered Pneumococcal Adult 0.5mL (Pneumovax 23) IM Intramuscular Apr 19, 2015 Administered Influenza (High Dose 65 & up) Unknown May 30, 2016 Ot hers Influenza (High Dose 65 & up) Unknown May 30, 2016 Ot hers Influenza (High Dose 65 & up) Unknown May 30, 2016 Ot hers Pneumococcal 0.5mL (Prevnar 13) IM Intramuscular Apr [...] Education Language: Question Answer Notes Languages spoken: Nicaraguan Yarsanism: Question Answer Notes Yarsanism 06 Hoahaoism Sexual Hx: Question Answer Notes Had sex [...] Notes Start Da te End Date Status Calcipotriene 0.005% APPLY OINTMENT TOPICALLY TO AFFECTED AREA TWICE DAILY NEEDED Active Folic Acid 1MG 2 tabs Orally Once a day Active Rosuvastatin Calcium 10 MG 1 tablet Oral Once a day Active Methotrexate 2.5MG 6 tab Orally WEEKLY Active Vitamin B-12 2500 MCG as directed Sublingual Once a day Active Naproxen 500MG 1 tablet as needed Orally every 12 hrs PRN for 30 Days Active Vitamin D 2000 UNIT 1 tab Orally bid Active Accupril 40MG 1 tablet Orally bid Ac tive Biotin 1000 MCG 1 tablet Orally Once a day Active Norvasc 10MG 1 tablet Orally Once a day for 90 days Active Synthroid 100MCG 1 tablet every morning on an empty stomach Oral ly Once a day Active Mag64 535 (64 Mg) MG 1 tablet Orally Twice a day Active PROCEDURES No Information RESULTS No Results REASON FOR VISIT covid vaccine MEDICAL (GENERAL) HISTORY Type Description Date Medical [...] Medication Name Sig Start Date Stop Date Naproxen 500MG 1 tablet as needed Orally every 12 hrs PRN for 3 0 Days Next Appt Details Provider Name:Marilu Munguia, 2020-08-31 09:30:00 AM, [address] , [place], [address], Insurance Providers Payer Name Payer Address Payer Phone Insured Name Patient Relati onship to Insured Coverage Start Date Coverage End Date BS [place] [employer] [address] [facility] [id number] LULA GUTIERREZ MEDICARE Part A and B [address] [facility] [address] [phone] LULA GUTIERREZ self
--- OUTSIDE RECORDS SUMMARY | 2020-08-18 15:09 | CCD ---
Author Author [facility] Organization [facility] Address Unknown Phone Unavailable Care Team Providers Care Emissions Inspector Name Role Phone Marilu Munguia Unavailable PROBLEMS Type Condition ICD9-CM Code [id number] Code Onset Dates Condition S tatus SNOMED Code Notes Problem Cyclic neutropenia D70.4 Active 852908062 Problem Impacted cerumen, unspecified laterality H61.20 Active 00658570 Problem Unilateral primary osteoarthritis, unspecified knee M17.10 Active 337947244 Problem Need for prophylactic vaccination and inoculatio n against influenza Z23 Active 278861512 Problem 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 Active 3333 9001 Problem Other psoriasis L40.8 Active 3085157 Problem Lipid storage disorder, unspecified E75.6 Acti ve 303734040 Problem Essential (primary) hypertension I10 Active 27498572 Problem Anemia, unspecified D64.9 Active 427910828 Problem GERD (gastroesophageal reflux disease) K21.9 A ctive 833057127 Problem Warts B07.9 Active 96344963 Problem Psoriatic arthritis L40.50 Active 445329519 Problem Hypothyroidism, unspecified E03.9 Active 4093 0008 Problem Senile osteoporosis M81.0 Active 13984799 Problem Viral syndrome B34.9 Active 24764620 Problem Vitamin D deficiency, unspecified E55.9 Active 08457339 Problem Herpes simplex without mention of complication B00 .9 Active 40181314 Problem Multiple chronic diseases R69 Active 227689 3666184 Problem Hyperlipidemia, unspecified hyperlipidemia type E7 8.5 Active 86015157 Problem History of psoriatic arthritis Z87.2 Active 2 39885435 Problem Primary osteoarthritis involving multiple joints M 15.0 Active 692782248 ALLERGIES Allergen (clinical drug ingredient) Drug/Non Drug Allergy do cumented on EMR Reaction Allergy Type Onset Date Status Sulfacetamide Sod-Sulfur Rash Drug Allergy Active hydroxychloroquine Plaquenil([facility] Code:[address]-94) Rash Drug Allergy Active pravastatin leg cramps Non Drug Allergy Active ENCOUNTERS from 1945 to 2020-06-03 Encounter Location Date Provider Diagnosis [facility] [address] [place] [address] 09 May Marilu Munguia IMMUNIZATIONS Vaccine Route Administration [...] Education Language: Question Answer Notes Languages spoken: Malian Mu-Ism: Question Answer Notes Mu-Ism 06 Buddhism Sexual Hx: Question Answer Notes Had sex [...] Information RESULTS No Results REASON FOR VISIT refill MEDICAL (GENERAL) HISTORY Type Description Date Medical [...] Munguia, 2020-08-31 09:30:00 AM, [address] , [place], [address], Insurance Providers Payer Name Payer Address Payer Phone Insured Name Patient Relati onship to Insured Coverage Start Date Coverage End Date BS [place] [employer] [address] [place] [address] LULA GUTIERREZ MEDICARE Part A and B [address] [facility] [address] [phone] LULA GUTIERREZ self
[2020-08-18 15:34] LABS: INR 0.94; PROTHROMBIN TIME 12.8 SECONDS (12.5-14.3)
[2020-08-18 15:43] LABS: ALBUMIN 4.4 GM/DL (3.2-5.2); ALT/SGPT 27 U/L (12-78); BILIRUBIN,DIRECT 0.3 MG/DL (0.0-0.2); BILIRUBIN,TOTAL 0.7 MG/DL (0.2-1.0); BLOOD UREA NITROGEN 13 MG/DL (7-18); CARBON DIOXIDE LEVEL 27 MEQ/L (21-32); CHLORIDE LEVEL 108 MEQ/L (98-107); CK-MB VALUE MASS 2.4 NG/ML (<3.6); CPK CREATINE PHOSPHOKINASE 196 U/L (26-192); CREATININE FOR GFR 0.91 MG/DL (0.55-1.30); GLOMERULAR FILTRATION RATE > 60.0 (>39); GLUCOSE, FASTING 155 MG/DL (70-100); LIPASE 121 U/L (73-393); MB/CK RELATIVE INDEX 1.22 (< OR =4); POTASSIUM SERUM 3.6 MEQ/L (3.5-5.1); SODIUM LEVEL 141 MEQ/L (136-145); TROPONIN I 0.02 NG/ML (< 0.10)
[2020-08-18 16:25] VITALS: BP 186/88
--- NOTE | 2020-08-19 02:25 | ECGEPIP ---
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
== END 2020-08-18 16:40 | disposition home or self-care (01) ==
LOC: EDBD 14:26 → M ED 14:26
DX: I44.0 Atrioventricular block, first degree (principal); I10 Essential (primary) hypertension; K21.9 Gastro-esophageal reflux disease without esophagitis; E07.9 Disorder of thyroid, unspecified; Z79.899 Other long term (current) drug therapy; Z88.2 Allergy status to sulfonamides; Z88.8 Allergy status to other drugs, medicaments and biological substances

== ENCOUNTER → 2020-09-12 | Outpatient (REF) | payer MEDICARE, BC ==
[2020-09-12 12:04] LABS: BASO % 0.5 % (0.0-1.0); EOS # 0.1 10^3/uL (0.0-0.5); EOS % 1.9 % (0.0-3.0); HEMATOCRIT 40.3 % (36.0-47.0); HEMOGLOBIN 12.9 g/dl (12.0-15.5); LYMPH # 2.9 10^3/uL (1.5-5.0); MEAN CORPUSCULAR HEMOGLOBIN 31.1 pg (27.0-33.0); MEAN CORPUSCULAR VOLUME 97.1 fl (80.0-96.0); MONO # 0.6 10^3/uL (0.0-0.8); MONO % 9.5 % (2.0-8.0); NEUTROPHILS # 2.2 10^3/uL (1.5-8.5); NEUTROPHILS % 37.8 % (36.0-66.0); PLATELET COUNT, AUTOMATED 165 10^3/uL (150-450); RED BLOOD COUNT 4.15 10^6/uL (4.00-5.40); WHITE BLOOD COUNT 5.9 10^3/uL (4.0-10.0)
[2020-09-12 12:27] LABS: ERYTHROCYTE SEDIMENTATION RATE 10 mm/hr (0-30)
[2020-09-12 12:38] LABS: ALBUMIN 3.9 GM/DL (3.2-5.2); ALT/SGPT 24 U/L (12-78); BILIRUBIN,TOTAL 0.8 MG/DL (0.2-1.0); BLOOD UREA NITROGEN 16 MG/DL (7-18); CALCIUM LEVEL 8.9 MG/DL (8.8-10.2); CARBON DIOXIDE LEVEL 27 MEQ/L (21-32); CHLORIDE LEVEL 109 MEQ/L (98-107); GLOMERULAR FILTRATION RATE > 60.0 (>39); GLUCOSE, FASTING 89 MG/DL (70-100); POTASSIUM SERUM 4.2 MEQ/L (3.5-5.1); SODIUM LEVEL 142 MEQ/L (136-145); TOTAL PROTEIN 6.5 GM/DL (6.4-8.2)
== END ==
LOC: M SFHCCLAY 07:02
PROVIDERS: ATTEND Internal Medicine
DX: L40.50 Arthropathic psoriasis, unspecified (principal)

== ENCOUNTER → 2020-09-23 | Outpatient (REF) | payer MEDICARE, BC | LOC: M SFHCCLAY 09:40 | PROVIDERS: ATTEND Nurse Practitioner Family | DX: Z92.29 Personal history of other drug therapy (principal) | CPT/HCPCS: 86769; G0463 ==

== ENCOUNTER → 2020-11-30 | Outpatient (REF) | payer MEDICARE, BC ==
[2020-11-30 12:12] LABS: BASO % 0.4 % (0.0-1.0); EOS # 0.1 10^3/uL (0.0-0.5); EOS % 0.7 % (0.0-3.0); HEMATOCRIT 38.1 % (36.0-47.0); HEMOGLOBIN 12.5 g/dl (12.0-15.5); LYMPH # 3.2 10^3/uL (1.5-5.0); LYMPH % 39.3 % (24.0-44.0); MEAN CORPUSCULAR HEMOGLOBIN 31.6 pg (27.0-33.0); MEAN CORPUSCULAR HGB CONC 32.8 g/dl (32.0-36.5); MEAN CORPUSCULAR VOLUME 96.2 fl (80.0-96.0); MONO # 0.5 10^3/uL (0.0-0.8); NEUTROPHILS # 4.4 10^3/uL (1.5-8.5); NEUTROPHILS % 53.4 % (36.0-66.0); PLATELET COUNT, AUTOMATED 200 10^3/uL (150-450); RED BLOOD COUNT 3.96 10^6/uL (4.00-5.40); WHITE BLOOD COUNT 8.2 10^3/uL (4.0-10.0)
[2020-11-30 12:55] LABS: ERYTHROCYTE SEDIMENTATION RATE 11 mm/hr (0-30)
[2020-11-30 18:44] LABS: ALBUMIN 3.8 GM/DL (3.2-5.2); ALT/SGPT 23 U/L (12-78); BILIRUBIN,TOTAL 0.6 MG/DL (0.2-1.0); BLOOD UREA NITROGEN 13 MG/DL (7-18); CALCIUM LEVEL 8.8 MG/DL (8.8-10.2); CARBON DIOXIDE LEVEL 31 MEQ/L (21-32); CHLORIDE LEVEL 100 MEQ/L (98-107); CREATININE FOR GFR 0.84 MG/DL (0.55-1.30); GLOMERULAR FILTRATION RATE > 60.0 (>39); GLUCOSE, FASTING 124 MG/DL (70-100); POTASSIUM SERUM 4.1 MEQ/L (3.5-5.1); SODIUM LEVEL 138 MEQ/L (136-145); TOTAL PROTEIN 6.4 GM/DL (6.4-8.2)
[2020-11-30 18:53] LABS: HEPATITIS B SURFACE ANTIGEN NEGATIVE (NEGATIVE)
[2020-11-30 19:21] LABS: HEPATITIS C VIRUS ABY INDEX < 0.0 INDEX (<0.8)
== END ==
LOC: M SFHCCLAY 09:04
PROVIDERS: ATTEND Internal Medicine Rheumatology
DX: L40.50 Arthropathic psoriasis, unspecified (principal); Z79.899 Other long term (current) drug therapy

== ENCOUNTER → 2020-11-30 | Outpatient (CLI) | payer MEDICARE, BC ==
--- NOTE | 2020-11-30 12:56 | REP ---
INDICATION: L40.50 PSORIAIC ARTHRITIS. COMPARISON: 05/28/2008 TECHNIQUE: Four views bilateral FINDINGS: There is marginal osteophytosis of all metacarpal heads increased from the prior exam. There is mild to moderate metacarpophalangeal joint space asymmetric narrowing increased from the prior exam. There is bilateral intra digital joint space asymmetric narrowing with marginal osteophytosis increased from the prior exam. Degenerative changes are seen involving the wrists particularly the 1st carpometacarpal joint spaces increased from the prior exam. There is no acute fracture. IMPRESSION: Increased degenerative changes as described above. <Electronically signed by Magno Santizo > 11/30/20 0931
--- NOTE | 2020-11-30 13:10 | REP ---
INDICATION: L40.50 PSORIAIC ARTHRITIS. COMPARISON: None. TECHNIQUE: Four views bilateral FINDINGS: Bilateral: Plantar and retrocalcaneal heel spurs are seen left greater than right.. Degenerative changes seen throughout the foot. There is mild rather symmetric appearing intra digital joint space narrowing. There is no pencil in cup deformity. There is no significant marginal osteophyte formation. There is no acute fracture. The bones are demineralized. IMPRESSION: Chronic changes seen bilaterally as described above. <Electronically signed by Magno Santizo > 11/30/20 8996
== END ==
LOC: M CLY 09:07
PROVIDERS: ATTEND Internal Medicine Rheumatology
DX: L40.50 Arthropathic psoriasis, unspecified (principal)

== ENCOUNTER → 2020-12-27 | Outpatient (REF) | payer MEDICARE, BC ==
[2020-12-27 13:13] LABS: BLOOD UREA NITROGEN 12 MG/DL (7-18); CALCIUM LEVEL 9.2 MG/DL (8.8-10.2); CARBON DIOXIDE LEVEL 29 MEQ/L (21-32); CHLORIDE LEVEL 101 MEQ/L (98-107); CREATININE FOR GFR 0.81 MG/DL (0.55-1.30); GLOMERULAR FILTRATION RATE > 60.0 (>39); GLUCOSE, FASTING 117 MG/DL (70-100); POTASSIUM SERUM 3.8 MEQ/L (3.5-5.1); SODIUM LEVEL 138 MEQ/L (136-145)
== END ==
LOC: M LABDRAWC 11:17
PROVIDERS: ATTEND Physician Assistant
DX: I11.9 Hypertensive heart disease without heart failure (principal)

== ENCOUNTER → 2021-03-27 | Outpatient (REF) | payer MEDICARE, BC ==
[2021-03-27 12:14] LABS: BASO % 0.5 % (0.0-1.0); EOS # 0.1 10^3/uL (0.0-0.5); EOS % 2.1 % (0.0-3.0); HEMATOCRIT 37.9 % (36.0-47.0); HEMOGLOBIN 12.6 g/dl (12.0-15.5); LYMPH # 2.8 10^3/uL (1.5-5.0); LYMPH % 44.9 % (24.0-44.0); MEAN CORPUSCULAR HEMOGLOBIN 31.9 pg (27.0-33.0); MEAN CORPUSCULAR HGB CONC 33.2 g/dl (32.0-36.5); MEAN CORPUSCULAR VOLUME 95.9 fl (80.0-96.0); MONO # 0.5 10^3/uL (0.0-0.8); MONO % 7.6 % (2.0-8.0); NEUTROPHILS # 2.8 10^3/uL (1.5-8.5); NEUTROPHILS % 44.6 % (36.0-66.0); PLATELET COUNT, AUTOMATED 188 10^3/uL (150-450); RED BLOOD COUNT 3.95 10^6/uL (4.00-5.40); WHITE BLOOD COUNT 6.3 10^3/uL (4.0-10.0)
[2021-03-27 12:32] LABS: ERYTHROCYTE SEDIMENTATION RATE 10 mm/hr (0-30)
[2021-03-27 13:07] LABS: ALBUMIN 3.7 GM/DL (3.2-5.2); ALT/SGPT 21 U/L (12-78); BILIRUBIN,TOTAL 0.7 MG/DL (0.2-1.0); BLOOD UREA NITROGEN 19 MG/DL (7-18); CALCIUM LEVEL 9.1 MG/DL (8.8-10.2); CARBON DIOXIDE LEVEL 31 MEQ/L (21-32); CHLORIDE LEVEL 107 MEQ/L (98-107); CREATININE FOR GFR 0.81 MG/DL (0.55-1.30); GLOMERULAR FILTRATION RATE > 60.0 (>39); GLUCOSE, FASTING 97 MG/DL (70-100); POTASSIUM SERUM 4.3 MEQ/L (3.5-5.1); SODIUM LEVEL 141 MEQ/L (136-145); TOTAL PROTEIN 6.2 GM/DL (6.4-8.2)
[2021-03-27 13:28] LABS: CHOLESTEROL RISK RATIO 2.048 (<5); FREE T4 1.44 NG/DL (0.76-1.46); THYROID STIMULATING HORMONE 0.49 uIU/ML (0.358-3.740)
[2021-03-27 13:30] LABS: TOTAL 25(OH) VITAMIN D 40.3 NG/ML (30.0-100.0)
[2021-03-27 15:02] LABS: HEMOGLOBIN A1c 5.4 %
== END ==
LOC: M SFHCCLAY 07:02
PROVIDERS: ATTEND Internal Medicine Rheumatology
DX: L40.50 Arthropathic psoriasis, unspecified (principal); E55.9 Vitamin D deficiency, unspecified; E03.9 Hypothyroidism, unspecified; I10 Essential (primary) hypertension; Z13.1 Encounter for screening for diabetes mellitus

== ENCOUNTER → 2021-08-15 | Outpatient (REF) | payer MEDICARE, BC ==
[2021-08-15 12:03] LABS: BASO % 0.5 % (0.0-1.0); EOS # 0.1 10^3/uL (0.0-0.5); HEMATOCRIT 38.3 % (36.0-47.0); HEMOGLOBIN 12.5 g/dl (12.0-15.5); LYMPH # 2.9 10^3/uL (1.5-5.0); LYMPH % 37.6 % (24.0-44.0); MEAN CORPUSCULAR HEMOGLOBIN 31.2 pg (27.0-33.0); MEAN CORPUSCULAR HGB CONC 32.6 g/dl (32.0-36.5); MEAN CORPUSCULAR VOLUME 95.5 fl (80.0-96.0); MONO # 0.5 10^3/uL (0.0-0.8); MONO % 5.8 % (2.0-8.0); NEUTROPHILS # 4.3 10^3/uL (1.5-8.5); NEUTROPHILS % 54.7 % (36.0-66.0); PLATELET COUNT, AUTOMATED 196 10^3/uL (150-450); RED BLOOD COUNT 4.01 10^6/uL (4.00-5.40); WHITE BLOOD COUNT 7.8 10^3/uL (4.0-10.0)
[2021-08-15 12:25] LABS: ERYTHROCYTE SEDIMENTATION RATE 10 mm/hr (0-30)
[2021-08-15 12:39] LABS: ALBUMIN 4.4 GM/DL (3.2-5.2); ALT/SGPT 32 U/L (12-78); BLOOD UREA NITROGEN 18 MG/DL (7-18); CARBON DIOXIDE LEVEL 28 MEQ/L (21-32); CHLORIDE LEVEL 103 MEQ/L (98-107); GLOMERULAR FILTRATION RATE > 60.0 (>39); GLUCOSE, FASTING 99 MG/DL (70-100); POTASSIUM SERUM 4.1 MEQ/L (3.5-5.1); SODIUM LEVEL 139 MEQ/L (136-145); TOTAL PROTEIN 6.9 GM/DL (6.4-8.2)
== END ==
LOC: M SFHCCLAY 07:38
PROVIDERS: ATTEND Internal Medicine Rheumatology
DX: L40.50 Arthropathic psoriasis, unspecified (principal); Z79.899 Other long term (current) drug therapy

== ENCOUNTER → 2021-10-05 | Outpatient (REF) | payer MEDICARE, BC ==
[2021-10-05 11:30] LABS: BASO % 0.1 % (0.0-1.0); HEMATOCRIT 36.3 % (36.0-47.0); HEMOGLOBIN 12.4 g/dl (12.0-15.5); LYMPH # 5.1 10^3/uL (1.5-5.0); LYMPH % 33.3 % (24.0-44.0); MEAN CORPUSCULAR HEMOGLOBIN 32.7 pg (27.0-33.0); MEAN CORPUSCULAR HGB CONC 34.2 g/dl (32.0-36.5); MEAN CORPUSCULAR VOLUME 95.8 fl (80.0-96.0); MONO # 0.6 10^3/uL (0.0-0.8); MONO % 3.7 % (2.0-8.0); NEUTROPHILS # 9.5 10^3/uL (1.5-8.5); NEUTROPHILS % 62.3 % (36.0-66.0); PLATELET COUNT, AUTOMATED 223 10^3/uL (150-450); RED BLOOD COUNT 3.79 10^6/uL (4.00-5.40); WHITE BLOOD COUNT 15.3 10^3/uL (4.0-10.0)
[2021-10-05 12:31] LABS: ALBUMIN 4.1 GM/DL (3.2-5.2); ALT/SGPT 26 U/L (12-78); BILIRUBIN,TOTAL 0.5 MG/DL (0.2-1.0); BLOOD UREA NITROGEN 28 MG/DL (7-18); CALCIUM LEVEL 10.1 MG/DL (8.8-10.2); CARBON DIOXIDE LEVEL 26 MEQ/L (21-32); CHLORIDE LEVEL 106 MEQ/L (98-107); CREATININE FOR GFR 0.85 MG/DL (0.55-1.30); FREE T4 1.42 NG/DL (0.76-1.46); GLOMERULAR FILTRATION RATE > 60.0 (>39); GLUCOSE, FASTING 116 MG/DL (70-100); POTASSIUM SERUM 4.4 MEQ/L (3.5-5.1); SODIUM LEVEL 141 MEQ/L (136-145); THYROID STIMULATING HORMONE 0.134 uIU/ML (0.358-3.740); TOTAL 25(OH) VITAMIN D 50.8 NG/ML (30.0-100.0); TOTAL PROTEIN 6.5 GM/DL (6.4-8.2)
== END ==
LOC: M SFHCCLAY 07:05
PROVIDERS: ATTEND Nurse Practitioner Family
DX: I10 Essential (primary) hypertension (principal); E78.5 Hyperlipidemia, unspecified; E03.9 Hypothyroidism, unspecified; K21.9 Gastro-esophageal reflux disease without esophagitis; D64.9 Anemia, unspecified

== ENCOUNTER → 2021-11-15 | Outpatient (REF) | payer MEDICARE, BC ==
[2021-11-15 11:55] LABS: HEMOGLOBIN A1c 5.4 %
[2021-11-15 12:20] LABS: FREE T4 1.3 NG/DL (0.76-1.46); MAGNESIUM LEVEL 2.2 MG/DL (1.8-2.4); THYROID STIMULATING HORMONE 2.08 uIU/ML (0.358-3.740)
== END ==
LOC: M SFHCCLAY 07:00
PROVIDERS: ATTEND Nurse Practitioner Family
DX: E03.9 Hypothyroidism, unspecified (principal); I10 Essential (primary) hypertension; R73.01 Impaired fasting glucose

== ENCOUNTER → 2021-12-21 | Outpatient (REF) | payer MEDICARE, BC ==
[2021-12-21 16:03] LABS: BASO % 0.5 % (0.0-1.0); EOS # 0.1 10^3/uL (0.0-0.5); EOS % 1.3 % (0.0-3.0); HEMATOCRIT 36.8 % (36.0-47.0); HEMOGLOBIN 12.3 g/dl (12.0-15.5); LYMPH # 3.1 10^3/uL (1.5-5.0); LYMPH % 41.1 % (24.0-44.0); MEAN CORPUSCULAR HEMOGLOBIN 31.7 pg (27.0-33.0); MEAN CORPUSCULAR HGB CONC 33.4 g/dl (32.0-36.5); MEAN CORPUSCULAR VOLUME 94.8 fl (80.0-96.0); MONO # 0.6 10^3/uL (0.0-0.8); MONO % 8.4 % (2.0-8.0); NEUTROPHILS # 3.6 10^3/uL (1.5-8.5); NEUTROPHILS % 48.4 % (36.0-66.0); PLATELET COUNT, AUTOMATED 195 10^3/uL (150-450); RED BLOOD COUNT 3.88 10^6/uL (4.00-5.40); WHITE BLOOD COUNT 7.5 10^3/uL (4.0-10.0)
[2021-12-21 16:21] LABS: ALBUMIN 4.6 GM/DL (3.2-5.2); ALT/SGPT 20 U/L (12-78); BILIRUBIN,TOTAL 1.4 MG/DL (0.2-1.0); BLOOD UREA NITROGEN 21 MG/DL (7-18); CALCIUM LEVEL 9.7 MG/DL (8.8-10.2); CARBON DIOXIDE LEVEL 32 MEQ/L (21-32); CHLORIDE LEVEL 100 MEQ/L (98-107); CREATININE FOR GFR 0.85 MG/DL (0.55-1.30); GLOMERULAR FILTRATION RATE > 60.0 (>39); GLUCOSE, FASTING 92 MG/DL (70-100); POTASSIUM SERUM 3.8 MEQ/L (3.5-5.1); SODIUM LEVEL 136 MEQ/L (136-145); TOTAL PROTEIN 6.1 GM/DL (6.4-8.2)
[2021-12-21 16:39] LABS: ERYTHROCYTE SEDIMENTATION RATE 9 mm/hr (0-30)
== END ==
LOC: M SFHCCLAY 15:43
PROVIDERS: ATTEND Internal Medicine Rheumatology
DX: L40.50 Arthropathic psoriasis, unspecified (principal); R68.2 Dry mouth, unspecified; Z79.899 Other long term (current) drug therapy; M89.49 Other hypertrophic osteoarthropathy, multiple sites

== ENCOUNTER → 2022-04-16 | Outpatient (REF) | payer MEDICARE, BC ==
[2022-04-16 11:58] LABS: BASO % 0.4 % (0.0-1.0); EOS # 0.1 10^3/uL (0.0-0.5); EOS % 1.3 % (0.0-3.0); HEMATOCRIT 34.4 % (36.0-47.0); HEMOGLOBIN 11.5 g/dl (12.0-15.5); LYMPH # 2.5 10^3/uL (1.5-5.0); LYMPH % 36.5 % (24.0-44.0); MEAN CORPUSCULAR HEMOGLOBIN 31.4 pg (27.0-33.0); MEAN CORPUSCULAR HGB CONC 33.4 g/dl (32.0-36.5); MONO # 0.5 10^3/uL (0.0-0.8); MONO % 7.1 % (2.0-8.0); NEUTROPHILS # 3.8 10^3/uL (1.5-8.5); NEUTROPHILS % 54.3 % (36.0-66.0); PLATELET COUNT, AUTOMATED 212 10^3/uL (150-450); RED BLOOD COUNT 3.66 10^6/uL (4.00-5.40)
[2022-04-16 12:23] LABS: ERYTHROCYTE SEDIMENTATION RATE 28 mm/hr (0-30)
[2022-04-16 12:27] LABS: HEMOGLOBIN A1c 5.4 %
[2022-04-16 13:16] LABS: ALT/SGPT 16 U/L (12-78); BILIRUBIN,TOTAL 0.6 MG/DL (0.2-1.0); BLOOD UREA NITROGEN 17 MG/DL (7-18); C REACTIVE PROTEIN QUANTITATIV 0.76 MG/DL (0.00-0.30); CALCIUM LEVEL 9.2 MG/DL (8.8-10.2); CARBON DIOXIDE LEVEL 29 MEQ/L (21-32); CHLORIDE LEVEL 102 MEQ/L (98-107); CHOLESTEROL LEVEL 163 MG/DL (<200); CHOLESTEROL RISK RATIO 2.037 (<5); CREATININE FOR GFR 0.76 MG/DL (0.55-1.30); FREE T4 1.32 NG/DL (0.76-1.46); GLOMERULAR FILTRATION RATE > 60.0 (>39); GLUCOSE, FASTING 100 MG/DL (70-100); HDL CHOLESTEROL 80 MG/DL (>40); LDL CHOLESTEROL 75 MG/DL (<100); MAGNESIUM LEVEL 2.1 MG/DL (1.8-2.4); NON-HDL-C 83 MG/DL; POTASSIUM SERUM 3.9 MEQ/L (3.5-5.1); SODIUM LEVEL 135 MEQ/L (136-145); TOTAL PROTEIN 6.5 GM/DL (6.4-8.2); TRIGLYCERIDES LEVEL 38 MG/DL (<150)
== END ==
LOC: M SFHCCLAY 08:31
PROVIDERS: ATTEND Internal Medicine Rheumatology
DX: L40.50 Arthropathic psoriasis, unspecified (principal); R68.2 Dry mouth, unspecified; M89.49 Other hypertrophic osteoarthropathy, multiple sites; Z79.899 Other long term (current) drug therapy; I10 Essential (primary) hypertension; E03.9 Hypothyroidism, unspecified

== ENCOUNTER → 2022-04-23 | Outpatient (CLI) | payer MEDICARE, BC | LOC: M WHC 09:57 | PROVIDERS: ATTEND Nurse Practitioner Family | DX: Z12.31 Encounter for screening mammogram for malignant neoplasm of breast (principal) ==

== ENCOUNTER → 2022-04-25 | Outpatient (REF) | payer MEDICARE, BC | LOC: M SFHCRHEU 11:13 | PROVIDERS: ATTEND Internal Medicine Rheumatology | DX: L40.50 Arthropathic psoriasis, unspecified (principal); R68.2 Dry mouth, unspecified; M89.49 Other hypertrophic osteoarthropathy, multiple sites; Z79.899 Other long term (current) drug therapy ==

== ENCOUNTER → 2022-05-21 | Outpatient (REF) | payer MEDICARE, BC ==
[2022-05-21 11:49] LABS: BASO % 0.5 % (0.0-1.0); EOS # 0.1 10^3/uL (0.0-0.5); EOS % 1.2 % (0.0-3.0); HEMATOCRIT 36.7 % (36.0-47.0); HEMOGLOBIN 11.9 g/dl (12.0-15.5); LYMPH # 3.2 10^3/uL (1.5-5.0); LYMPH % 39.4 % (24.0-44.0); MEAN CORPUSCULAR HGB CONC 32.4 g/dl (32.0-36.5); MEAN CORPUSCULAR VOLUME 95.6 fl (80.0-96.0); MONO # 0.6 10^3/uL (0.0-0.8); MONO % 7.5 % (2.0-8.0); NEUTROPHILS # 4.2 10^3/uL (1.5-8.5); NEUTROPHILS % 51.2 % (36.0-66.0); PLATELET COUNT, AUTOMATED 242 10^3/uL (150-450); RED BLOOD COUNT 3.84 10^6/uL (4.00-5.40); WHITE BLOOD COUNT 8.2 10^3/uL (4.0-10.0)
[2022-05-21 12:18] LABS: ERYTHROCYTE SEDIMENTATION RATE 10 mm/hr (0-30)
[2022-05-21 13:34] LABS: CHLORIDE LEVEL 100 MMOL/L (98-107); POTASSIUM SERUM 3.9 MMOL/L (3.5-5.1); SODIUM LEVEL 141 MMOL/L (136-145)
[2022-05-21 13:35] LABS: CARBON DIOXIDE LEVEL 30 MMOL/L (20-31)
[2022-05-21 13:40] LABS: BLOOD UREA NITROGEN 16 MG/DL (9-23)
[2022-05-21 13:41] LABS: ALKALINE PHOSPHATASE 72 U/L (46-116); BILIRUBIN,TOTAL 0.7 MG/DL (0.3-1.2); GLUCOSE, FASTING 88 MG/DL (74-106)
[2022-05-21 13:42] LABS: TOTAL PROTEIN 6.4 G/DL (5.7-8.2)
[2022-05-21 13:43] LABS: ALT/SGPT 24 U/L (7.0-40); AST/SGOT 31 U/L (<34); CREATININE FOR GFR 0.81 MG/DL (0.55-1.30); GLOMERULAR FILTRATION RATE > 60.0 (>39)
== END ==
LOC: M SFHCCLAY 08:58
PROVIDERS: ATTEND Internal Medicine Rheumatology
DX: L40.50 Arthropathic psoriasis, unspecified (principal); R68.2 Dry mouth, unspecified; M89.49 Other hypertrophic osteoarthropathy, multiple sites; Z79.899 Other long term (current) drug therapy

== ENCOUNTER → 2022-05-30 | Outpatient (REF) | payer MEDICARE, BC ==
[2022-05-30 11:43] LABS: BASO # 0.1 10^3/uL (0.0-0.2); BASO % 0.6 % (0.0-1.0); EOS # 0.1 10^3/uL (0.0-0.5); EOS % 1.3 % (0.0-3.0); HEMOGLOBIN 12.2 g/dl (12.0-15.5); LYMPH # 4.4 10^3/uL (1.5-5.0); LYMPH % 51.3 % (24.0-44.0); MEAN CORPUSCULAR HEMOGLOBIN 31.9 pg (27.0-33.0); MEAN CORPUSCULAR VOLUME 96.6 fl (80.0-96.0); MONO # 0.5 10^3/uL (0.0-0.8); MONO % 5.9 % (2.0-8.0); NEUTROPHILS # 3.5 10^3/uL (1.5-8.5); NEUTROPHILS % 40.6 % (36.0-66.0); PLATELET COUNT, AUTOMATED 232 10^3/uL (150-450); RED BLOOD COUNT 3.83 10^6/uL (4.00-5.40); WHITE BLOOD COUNT 8.6 10^3/uL (4.0-10.0)
[2022-05-30 12:16] LABS: ALKALINE PHOSPHATASE 69 U/L (46-116); ALT/SGPT 21 U/L (7.0-40); AST/SGOT 19 U/L (<34); BILIRUBIN,TOTAL 0.8 MG/DL (0.3-1.2); BLOOD UREA NITROGEN 20 MG/DL (9-23); CALCIUM LEVEL 9.2 MG/DL (8.3-10.6); CARBON DIOXIDE LEVEL 32 MMOL/L (20-31); CHLORIDE LEVEL 100 MMOL/L (98-107); CREATININE FOR GFR 0.85 MG/DL (0.55-1.30); GLOMERULAR FILTRATION RATE > 60.0 (>39); GLUCOSE, FASTING 94 MG/DL (74-106); POTASSIUM SERUM 4.2 MMOL/L (3.5-5.1); SODIUM LEVEL 138 MMOL/L (136-145); TOTAL PROTEIN 6.5 G/DL (5.7-8.2)
[2022-05-30 12:20] LABS: ERYTHROCYTE SEDIMENTATION RATE 8 mm/hr (0-30)
== END ==
LOC: M SFHCCLAY 07:03
PROVIDERS: ATTEND Nurse Practitioner Family
DX: L40.50 Arthropathic psoriasis, unspecified (principal); R68.2 Dry mouth, unspecified; M89.49 Other hypertrophic osteoarthropathy, multiple sites; Z79.899 Other long term (current) drug therapy

== ENCOUNTER → 2022-06-27 | Outpatient (REF) | payer MEDICARE, BC ==
[2022-06-27 11:38] LABS: BASO % 0.6 % (0.0-1.0); EOS # 0.1 10^3/uL (0.0-0.5); HEMATOCRIT 35.8 % (36.0-47.0); HEMOGLOBIN 11.7 g/dl (12.0-15.5); LYMPH # 3.1 10^3/uL (1.5-5.0); LYMPH % 42.3 % (24.0-44.0); MEAN CORPUSCULAR HEMOGLOBIN 31.5 pg (27.0-33.0); MEAN CORPUSCULAR HGB CONC 32.7 g/dl (32.0-36.5); MEAN CORPUSCULAR VOLUME 96.2 fl (80.0-96.0); MONO # 0.4 10^3/uL (0.0-0.8); MONO % 5.7 % (2.0-8.0); NEUTROPHILS # 3.6 10^3/uL (1.5-8.5); NEUTROPHILS % 49.4 % (36.0-66.0); PLATELET COUNT, AUTOMATED 215 10^3/uL (150-450); RED BLOOD COUNT 3.72 10^6/uL (4.00-5.40); WHITE BLOOD COUNT 7.2 10^3/uL (4.0-10.0)
[2022-06-27 11:52] LABS: ERYTHROCYTE SEDIMENTATION RATE 11 mm/hr (0-30)
[2022-06-27 12:03] LABS: ALKALINE PHOSPHATASE 73 U/L (46-116); ALT/SGPT 18 U/L (7.0-40); AST/SGOT 25 U/L (<34); BLOOD UREA NITROGEN 18 MG/DL (9-23); C REACTIVE PROTEIN QUANTITATIV < 0.40 MG/DL (<1.0); CALCIUM LEVEL 9.3 MG/DL (8.3-10.6); CARBON DIOXIDE LEVEL 27 MMOL/L (20-31); CHLORIDE LEVEL 98 MMOL/L (98-107); GLOMERULAR FILTRATION RATE > 60.0 (>39); GLUCOSE, FASTING 94 MG/DL (74-106); POTASSIUM SERUM 3.9 MMOL/L (3.5-5.1); SODIUM LEVEL 138 MMOL/L (136-145); TOTAL PROTEIN 6.2 G/DL (5.7-8.2)
== END ==
LOC: M SFHCRHEU 08:52
PROVIDERS: ATTEND Internal Medicine Rheumatology
DX: L40.50 Arthropathic psoriasis, unspecified (principal); R68.2 Dry mouth, unspecified; M89.49 Other hypertrophic osteoarthropathy, multiple sites; Z79.899 Other long term (current) drug therapy

== ENCOUNTER → 2022-07-03 | Outpatient (CLI) | payer MEDICARE, BC | LOC: M CLY 13:48 | PROVIDERS: ATTEND Nurse Practitioner Family | DX: M25.552 Pain in left hip (principal); M16.12 Unilateral primary osteoarthritis, left hip ==

== ENCOUNTER → 2022-08-29 | Outpatient (CLI) | payer MEDICARE, BC | LOC: M SOG 08:07 | PROVIDERS: ATTEND Orthopaedic Surgery | DX: M16.12 Unilateral primary osteoarthritis, left hip (principal); M17.11 Unilateral primary osteoarthritis, right knee; M25.562 Pain in left knee ==

== ENCOUNTER → 2022-10-08 | Outpatient (REF) | payer MEDICARE, BC ==
[2022-10-08 12:19] LABS: BASO % 0.4 % (0.0-1.0); C REACTIVE PROTEIN QUANTITATIV < 0.40 MG/DL (<1.0); EOS # 0.1 10^3/uL (0.0-0.5); EOS % 1.1 % (0.0-3.0); HEMATOCRIT 38.4 % (36.0-47.0); HEMOGLOBIN 12.2 g/dl (12.0-15.5); LYMPH # 3.1 10^3/uL (1.5-5.0); LYMPH % 41.7 % (24.0-44.0); MEAN CORPUSCULAR HGB CONC 31.8 g/dl (32.0-36.5); MEAN CORPUSCULAR VOLUME 97.7 fl (80.0-96.0); MONO # 0.5 10^3/uL (0.0-0.8); MONO % 6.2 % (2.0-8.0); NEUTROPHILS # 3.8 10^3/uL (1.5-8.5); NEUTROPHILS % 50.2 % (36.0-66.0); PLATELET COUNT, AUTOMATED 216 10^3/uL (150-450); RED BLOOD COUNT 3.93 10^6/uL (4.00-5.40); WHITE BLOOD COUNT 7.5 10^3/uL (4.0-10.0)
[2022-10-08 12:20] LABS: ALKALINE PHOSPHATASE 75 U/L (46-116); ALT/SGPT 19 U/L (7.0-40); AST/SGOT 20 U/L (<34); BILIRUBIN,TOTAL 0.9 MG/DL (0.3-1.2); BLOOD UREA NITROGEN 24 MG/DL (9-23); CALCIUM LEVEL 9.4 MG/DL (8.3-10.6); CARBON DIOXIDE LEVEL 32 MMOL/L (20-31); CHLORIDE LEVEL 103 MMOL/L (98-107); CREATININE FOR GFR 0.86 MG/DL (0.55-1.30); GLOMERULAR FILTRATION RATE > 60.0 (>39); GLUCOSE, FASTING 75 MG/DL (74-106); POTASSIUM SERUM 3.6 MMOL/L (3.5-5.1); SODIUM LEVEL 139 MMOL/L (136-145); TOTAL PROTEIN 6.5 G/DL (5.7-8.2)
[2022-10-08 12:55] LABS: ERYTHROCYTE SEDIMENTATION RATE 10 mm/hr (0-30)
== END ==
LOC: M SFHCCLAY 09:09
PROVIDERS: ATTEND Internal Medicine Rheumatology
DX: L40.50 Arthropathic psoriasis, unspecified (principal); R68.2 Dry mouth, unspecified; M89.49 Other hypertrophic osteoarthropathy, multiple sites; Z79.899 Other long term (current) drug therapy; D64.9 Anemia, unspecified

== ENCOUNTER → 2023-01-07 | Outpatient (REF) | payer MEDICARE, BC ==
[~2023-01-07] MED LIST changes: -ROSU20TA5 PO; +ROSU20TA61 PO
[2023-01-07 12:20] LABS: BASO % 0.4 % (0.0-1.0); EOS # 0.1 10^3/uL (0.0-0.5); EOS % 1.3 % (0.0-3.0); HEMATOCRIT 37.5 % (36.0-47.0); HEMOGLOBIN 12.4 g/dl (12.0-15.5); LYMPH # 3.9 10^3/uL (1.5-5.0); MEAN CORPUSCULAR HEMOGLOBIN 31.9 pg (27.0-33.0); MEAN CORPUSCULAR HGB CONC 33.1 g/dl (32.0-36.5); MEAN CORPUSCULAR VOLUME 96.4 fl (80.0-96.0); MONO # 0.5 10^3/uL (0.0-0.8); MONO % 6.9 % (2.0-8.0); NEUTROPHILS # 2.9 10^3/uL (1.5-8.5); NEUTROPHILS % 39.1 % (36.0-66.0); PLATELET COUNT, AUTOMATED 225 10^3/uL (150-450); RED BLOOD COUNT 3.89 10^6/uL (4.00-5.40); WHITE BLOOD COUNT 7.5 10^3/uL (4.0-10.0)
[2023-01-07 12:24] LABS: ALKALINE PHOSPHATASE 68 U/L (46-116); ALT/SGPT 14 U/L (7.0-40); AST/SGOT 16 U/L (<34); BLOOD UREA NITROGEN 14 MG/DL (9-23); C REACTIVE PROTEIN QUANTITATIV < 0.40 MG/DL (<1.0); CALCIUM LEVEL 9.4 MG/DL (8.3-10.6); CARBON DIOXIDE LEVEL 30 MMOL/L (20-31); CHLORIDE LEVEL 101 MMOL/L (98-107); CREATININE FOR GFR 0.74 MG/DL (0.55-1.30); GLOMERULAR FILTRATION RATE > 60.0 (>39); GLUCOSE, FASTING 98 MG/DL (74-106); PERCENT SATURATION 28.6 % (13.2-45.0); POTASSIUM SERUM 3.8 MMOL/L (3.5-5.1); SODIUM LEVEL 139 MMOL/L (136-145); TOTAL PROTEIN 6.3 G/DL (5.7-8.2)
[2023-01-07 12:58] LABS: ERYTHROCYTE SEDIMENTATION RATE 10 mm/hr (0-30)
== END ==
LOC: M SFHCCLAY 07:05
PROVIDERS: ATTEND Internal Medicine Rheumatology
DX: L40.50 Arthropathic psoriasis, unspecified (principal); R68.2 Dry mouth, unspecified; M89.49 Other hypertrophic osteoarthropathy, multiple sites; Z79.899 Other long term (current) drug therapy; D64.9 Anemia, unspecified; E75.6 Lipid storage disorder, unspecified; I10 Essential (primary) hypertension; E78.5 Hyperlipidemia, unspecified; K21.9 Gastro-esophageal reflux disease without esophagitis; E03.9 Hypothyroidism, unspecified; E55.9 Vitamin D deficiency, unspecified

== ENCOUNTER 2023-02-18 10:26 | Emergency (ER) | payer MEDICARE, BC ==
[~2023-02-18] VITALS: Ht 167.6 cm; Wt 70.1 kg
[2023-02-18 10:27] VITALS: BP 171/76; TEMP 97.3; O2SAT 99
[2023-02-18] MEDS ORDERED: LOSA100T46 (10:41)
[2023-02-18] MEDS ORDERED: ROSU10TA6 (10:41)
[2023-02-18] MEDS ORDERED: CHLO125TA (10:41)
[2023-02-18] MEDS ORDERED: LEVO88TA3 (10:41)
== END 2023-02-18 11:48 | disposition left against medical advice (07) ==
LOC: M ED 10:26
DX: Z53.21 Procedure and treatment not carried out due to patient leaving prior to being seen by health care provider (principal)

== ENCOUNTER → 2023-04-10 | Outpatient (REF) | payer MEDICARE, BC ==
[~2023-04-10] MED LIST changes: +CHLO125TA; +LEVO88TA3; +LOSA100T46; +ROSU10TA6
[2023-04-10 12:16] LABS: BASO % 0.5 % (0.0-1.0); C REACTIVE PROTEIN QUANTITATIV < 0.40 MG/DL (<1.0); EOS # 0.1 10^3/uL (0.0-0.5); EOS % 1.4 % (0.0-3.0); HEMATOCRIT 38.9 % (36.0-47.0); HEMOGLOBIN 12.9 g/dl (12.0-15.5); LYMPH % 46.8 % (24.0-44.0); MEAN CORPUSCULAR HGB CONC 33.2 g/dl (32.0-36.5); MEAN CORPUSCULAR VOLUME 96.5 fl (80.0-96.0); MONO # 0.4 10^3/uL (0.0-0.8); MONO % 6.8 % (2.0-8.0); NEUTROPHILS # 2.8 10^3/uL (1.5-8.5); NEUTROPHILS % 44.3 % (36.0-66.0); PLATELET COUNT, AUTOMATED 203 10^3/uL (150-450); RED BLOOD COUNT 4.03 10^6/uL (4.00-5.40); WHITE BLOOD COUNT 6.3 10^3/uL (4.0-10.0)
[2023-04-10 12:18] LABS: ALBUMIN 4.2 G/DL (3.2-5.2); ALKALINE PHOSPHATASE 79 U/L (46-116); ALT/SGPT 15 U/L (7.0-40); AST/SGOT 20 U/L (<34); BILIRUBIN,TOTAL 0.8 MG/DL (0.3-1.2); BLOOD UREA NITROGEN 18 MG/DL (9-23); CALCIUM LEVEL 9.2 MG/DL (8.3-10.6); CARBON DIOXIDE LEVEL 31 MMOL/L (20-31); CHLORIDE LEVEL 102 MMOL/L (98-107); GLOMERULAR FILTRATION RATE > 60.0 (>39); GLUCOSE, FASTING 96 MG/DL (74-106); POTASSIUM SERUM 3.8 MMOL/L (3.5-5.1); SODIUM LEVEL 140 MMOL/L (136-145); TOTAL PROTEIN 6.8 G/DL (5.7-8.2)
[2023-04-10 12:27] LABS: ALBUMIN 4.2 G/DL (3.2-5.2); ALKALINE PHOSPHATASE 80 U/L (46-116); ALT/SGPT 14 U/L (7.0-40); AST/SGOT 20 U/L (<34); BILIRUBIN,TOTAL 0.8 MG/DL (0.3-1.2); BLOOD UREA NITROGEN 19 MG/DL (9-23); CALCIUM LEVEL 9.5 MG/DL (8.3-10.6); CARBON DIOXIDE LEVEL 30 MMOL/L (20-31); CHLORIDE LEVEL 101 MMOL/L (98-107); CHOLESTEROL LEVEL 178 MG/DL (<200); CREATININE FOR GFR 0.79 MG/DL (0.55-1.30); FREE T4 1.43 NG/DL (0.89-1.76); GLOMERULAR FILTRATION RATE > 60.0 (>39); GLUCOSE, FASTING 95 MG/DL (74-106); POTASSIUM SERUM 3.9 MMOL/L (3.5-5.1); SODIUM LEVEL 139 MMOL/L (136-145); THYROID STIMULATING HORMONE 2.418 uIU/ML (0.55-4.78); TOTAL PROTEIN 6.8 G/DL (5.7-8.2); TRIGLYCERIDES LEVEL 65 MG/DL (<150)
[2023-04-10 12:30] LABS: HEMOGLOBIN A1c 5.2 % (4.0-6.0)
[2023-04-10 12:52] LABS: ERYTHROCYTE SEDIMENTATION RATE 14 mm/hr (0-30)
[2023-04-10 18:35] LABS: CHOLESTEROL RISK RATIO 2.09 (<5); HDL CHOLESTEROL 84.9 MG/DL (>40); LDL CHOLESTEROL 80.1 MG/DL (<100); NON-HDL-C 93.1 MG/DL
== END ==
LOC: M SFHCCLAY 07:05
PROVIDERS: ATTEND Internal Medicine Rheumatology
DX: L40.50 Arthropathic psoriasis, unspecified (principal); R68.2 Dry mouth, unspecified; M89.49 Other hypertrophic osteoarthropathy, multiple sites; Z79.899 Other long term (current) drug therapy; D64.9 Anemia, unspecified; E03.9 Hypothyroidism, unspecified; I10 Essential (primary) hypertension

== ENCOUNTER → 2023-08-29 | Outpatient (REF) | payer MEDICARE, BC | LOC: M SFHCCLAY 11:40 | PROVIDERS: ATTEND Internal Medicine Rheumatology | DX: L40.50 Arthropathic psoriasis, unspecified (principal); M89.49 Other hypertrophic osteoarthropathy, multiple sites; R68.2 Dry mouth, unspecified; Z79.899 Other long term (current) drug therapy; D64.9 Anemia, unspecified ==

== ENCOUNTER → 2023-09-03 | Outpatient (REF) | payer MEDICARE, BC ==
[2023-09-03 17:14] LABS: BASO % 0.4 % (0.0-1.0); EOS # 0.1 10^3/uL (0.0-0.5); EOS % 0.9 % (0.0-3.0); HEMATOCRIT 35.6 % (36.0-47.0); HEMOGLOBIN 11.9 g/dl (12.0-15.5); LYMPH % 45.2 % (24.0-44.0); MEAN CORPUSCULAR HEMOGLOBIN 32.6 pg (27.0-33.0); MEAN CORPUSCULAR HGB CONC 33.4 g/dl (32.0-36.5); MEAN CORPUSCULAR VOLUME 97.5 fl (80.0-96.0); MONO # 0.5 10^3/uL (0.0-0.8); MONO % 6.1 % (2.0-8.0); NEUTROPHILS # 4.2 10^3/uL (1.5-8.5); NEUTROPHILS % 47.1 % (36.0-66.0); PLATELET COUNT, AUTOMATED 206 10^3/uL (150-450); RED BLOOD COUNT 3.65 10^6/uL (4.00-5.40); WHITE BLOOD COUNT 8.9 10^3/uL (4.0-10.0)
[2023-09-03 17:27] LABS: ALKALINE PHOSPHATASE 66 U/L (46-116); ALT/SGPT 18 U/L (7.0-40); AST/SGOT 20 U/L (<34); BILIRUBIN,TOTAL 0.8 MG/DL (0.3-1.2); BLOOD UREA NITROGEN 25 MG/DL (9-23); CALCIUM LEVEL 8.9 MG/DL (8.3-10.6); CARBON DIOXIDE LEVEL 30 MMOL/L (20-31); CHLORIDE LEVEL 100 MMOL/L (98-107); CREATININE FOR GFR 0.87 MG/DL (0.55-1.30); GLOMERULAR FILTRATION RATE > 60.0 (>32); GLUCOSE, FASTING 100 MG/DL (74-106); SODIUM LEVEL 136 MMOL/L (136-145); TOTAL PROTEIN 6.3 G/DL (5.7-8.2)
== END ==
LOC: M SFHCRHEU 15:04
PROVIDERS: ATTEND Internal Medicine Rheumatology
DX: L40.50 Arthropathic psoriasis, unspecified (principal); R68.2 Dry mouth, unspecified; M89.49 Other hypertrophic osteoarthropathy, multiple sites; Z79.899 Other long term (current) drug therapy; D64.9 Anemia, unspecified

== ENCOUNTER → 2023-10-17 | Outpatient (REF) | payer MEDICARE, BC ==
[2023-10-17 13:55] LABS: C REACTIVE PROTEIN QUANTITATIV < 0.40 MG/DL (<1.0)
[2023-10-17 13:57] LABS: ALBUMIN 4.3 G/DL (3.2-5.2); ALKALINE PHOSPHATASE 81 U/L (46-116); ALT/SGPT 17 U/L (7.0-40); AST/SGOT 19 U/L (<34); BILIRUBIN,TOTAL 0.9 MG/DL (0.3-1.2); BLOOD UREA NITROGEN 19 MG/DL (9-23); CALCIUM LEVEL 9.9 MG/DL (8.3-10.6); CARBON DIOXIDE LEVEL 31 MMOL/L (20-31); CHLORIDE LEVEL 100 MMOL/L (98-107); CREATININE FOR GFR 0.75 MG/DL (0.55-1.30); GLOMERULAR FILTRATION RATE > 60.0 (>32); GLUCOSE, FASTING 95 MG/DL (74-106); POTASSIUM SERUM 3.8 MMOL/L (3.5-5.1); SODIUM LEVEL 137 MMOL/L (136-145); TOTAL PROTEIN 6.8 G/DL (5.7-8.2)
[2023-10-17 13:58] LABS: FREE T4 1.38 NG/DL (0.89-1.76)
[2023-10-17 14:02] LABS: BASO # 0.1 10^3/uL (0.0-0.2); BASO % 0.6 % (0.0-1.0); EOS # 0.1 10^3/uL (0.0-0.5); EOS % 1.2 % (0.0-3.0); HEMATOCRIT 39.7 % (36.0-47.0); HEMOGLOBIN 13.2 g/dl (12.0-15.5); LYMPH % 50.4 % (24.0-44.0); MEAN CORPUSCULAR HEMOGLOBIN 32.2 pg (27.0-33.0); MEAN CORPUSCULAR HGB CONC 33.2 g/dl (32.0-36.5); MEAN CORPUSCULAR VOLUME 96.8 fl (80.0-96.0); MONO # 0.6 10^3/uL (0.0-0.8); NEUTROPHILS # 3.2 10^3/uL (1.5-8.5); NEUTROPHILS % 40.3 % (36.0-66.0); PLATELET COUNT, AUTOMATED 221 10^3/uL (150-450)
[2023-10-17 14:09] LABS: ERYTHROCYTE SEDIMENTATION RATE 10 mm/hr (0-30)
== END ==
LOC: M SFHCCLAY 07:02
PROVIDERS: ATTEND Nurse Practitioner Family
DX: L40.50 Arthropathic psoriasis, unspecified (principal); M89.49 Other hypertrophic osteoarthropathy, multiple sites; R68.2 Dry mouth, unspecified; Z79.899 Other long term (current) drug therapy; D64.9 Anemia, unspecified; R53.1 Weakness; I10 Essential (primary) hypertension; E78.5 Hyperlipidemia, unspecified; E03.9 Hypothyroidism, unspecified; K21.9 Gastro-esophageal reflux disease without esophagitis; E55.9 Vitamin D deficiency, unspecified; Z86.79 Personal history of other diseases of the circulatory system

== ENCOUNTER → 2023-12-09 | Outpatient (REF) | payer MEDICARE, BC ==
[~2023-12-09] MED LIST changes: -ROSU10TA6; +ROSU10TA61
[2023-12-09 17:53] LABS: BASO % 0.6 % (0.0-1.0); EOS # 0.1 10^3/uL (0.0-0.5); EOS % 1.4 % (0.0-3.0); HEMATOCRIT 37.5 % (36.0-47.0); HEMOGLOBIN 12.7 g/dl (12.0-15.5); LYMPH # 3.2 10^3/uL (1.5-5.0); LYMPH % 45.7 % (24.0-44.0); MEAN CORPUSCULAR HEMOGLOBIN 33.3 pg (27.0-33.0); MEAN CORPUSCULAR HGB CONC 33.9 g/dl (32.0-36.5); MEAN CORPUSCULAR VOLUME 98.4 fl (80.0-96.0); MONO # 0.3 10^3/uL (0.0-0.8); MONO % 4.9 % (2.0-8.0); NEUTROPHILS # 3.3 10^3/uL (1.5-8.5); PLATELET COUNT, AUTOMATED 210 10^3/uL (150-450); RED BLOOD COUNT 3.81 10^6/uL (4.00-5.40); WHITE BLOOD COUNT 6.9 10^3/uL (4.0-10.0)
[2023-12-09 18:16] LABS: C REACTIVE PROTEIN QUANTITATIV < 0.40 MG/DL (<1.0); ERYTHROCYTE SEDIMENTATION RATE 4 mm/hr (0-30)
[2023-12-09 18:19] LABS: ALBUMIN 4.2 G/DL (3.2-5.2); ALKALINE PHOSPHATASE 75 U/L (46-116); ALT/SGPT 18 U/L (7.0-40); AST/SGOT 18 U/L (<34); BILIRUBIN,TOTAL 1.1 MG/DL (0.3-1.2); BLOOD UREA NITROGEN 19 MG/DL (9-23); CALCIUM LEVEL 9.5 MG/DL (8.3-10.6); CARBON DIOXIDE LEVEL 30 MMOL/L (20-31); CHLORIDE LEVEL 107 MMOL/L (98-107); CREATININE FOR GFR 0.75 MG/DL (0.55-1.30); GLOMERULAR FILTRATION RATE > 60.0 (>32); GLUCOSE, FASTING 75 MG/DL (74-106); POTASSIUM SERUM 4.8 MMOL/L (3.5-5.1); SODIUM LEVEL 142 MMOL/L (136-145); TOTAL PROTEIN 6.4 G/DL (5.7-8.2)
== END ==
LOC: M SFHCCLAY 09:08
PROVIDERS: ATTEND Internal Medicine Rheumatology
DX: L40.50 Arthropathic psoriasis, unspecified (principal); R68.2 Dry mouth, unspecified; M89.49 Other hypertrophic osteoarthropathy, multiple sites; Z79.899 Other long term (current) drug therapy; D64.9 Anemia, unspecified

== ENCOUNTER → 2023-12-17 | Outpatient (REF) | payer MEDICARE, BC | LOC: M SFHCRHEU 11:36 | PROVIDERS: ATTEND Internal Medicine Rheumatology | DX: L40.50 Arthropathic psoriasis, unspecified (principal) ==

== ENCOUNTER → 2024-04-16 | Outpatient (REF) | payer MEDICARE, BC ==
[~2024-04-16] MED LIST changes: -ROSU20TA61 PO; +ROSU20TA86 PO
[2024-04-16 12:02] LABS: BASO # 0.1 10^3/uL (0.0-0.2); BASO % 0.6 % (0.0-1.0); EOS # 0.1 10^3/uL (0.0-0.5); EOS % 1.4 % (0.0-3.0); HEMOGLOBIN 12.4 g/dl (12.0-15.5); LYMPH # 3.7 10^3/uL (1.5-5.0); LYMPH % 47.7 % (24.0-44.0); MEAN CORPUSCULAR HEMOGLOBIN 32.1 pg (27.0-33.0); MEAN CORPUSCULAR HGB CONC 33.5 g/dl (32.0-36.5); MEAN CORPUSCULAR VOLUME 95.9 fl (80.0-96.0); MONO # 0.5 10^3/uL (0.0-0.8); MONO % 6.8 % (2.0-8.0); NEUTROPHILS # 3.4 10^3/uL (1.5-8.5); NEUTROPHILS % 43.1 % (36.0-66.0); PLATELET COUNT, AUTOMATED 226 10^3/uL (150-450); RED BLOOD COUNT 3.86 10^6/uL (4.00-5.40); WHITE BLOOD COUNT 7.8 10^3/uL (4.0-10.0)
[2024-04-16 12:25] LABS: ERYTHROCYTE SEDIMENTATION RATE 6 mm/hr (0-30)
[2024-04-16 12:45] LABS: C REACTIVE PROTEIN QUANTITATIV < 0.40 MG/DL (<1.0)
[2024-04-16 12:47] LABS: ALBUMIN 4.3 G/DL (3.2-5.2); ALKALINE PHOSPHATASE 80 U/L (46-116); ALT/SGPT 17 U/L (7.0-40); AST/SGOT 14 U/L (<34); BLOOD UREA NITROGEN 17 MG/DL (9-23); CALCIUM LEVEL 9.9 MG/DL (8.3-10.6); CARBON DIOXIDE LEVEL 31 MMOL/L (20-31); CHLORIDE LEVEL 103 MMOL/L (98-107); CHOLESTEROL LEVEL 170 MG/DL (<200); CHOLESTEROL RISK RATIO 2.06 (<5); CREATININE FOR GFR 0.75 MG/DL (0.55-1.30); GLOMERULAR FILTRATION RATE > 60.0 (>32); GLUCOSE, FASTING 92 MG/DL (74-106); HDL CHOLESTEROL 82.2 MG/DL (>40); NON-HDL-C 87.8 MG/DL; POTASSIUM SERUM 4.2 MMOL/L (3.5-5.1); SODIUM LEVEL 138 MMOL/L (136-145); TOTAL PROTEIN 6.6 G/DL (5.7-8.2); TRIGLYCERIDES LEVEL 79 MG/DL (<150)
== END ==
LOC: M SFHCCLAY 07:27
PROVIDERS: ATTEND Internal Medicine Rheumatology
DX: L40.50 Arthropathic psoriasis, unspecified (principal); M89.49 Other hypertrophic osteoarthropathy, multiple sites; D64.9 Anemia, unspecified; E78.5 Hyperlipidemia, unspecified; R68.2 Dry mouth, unspecified; Z79.899 Other long term (current) drug therapy

== ENCOUNTER → 2024-06-04 | Outpatient (REF) | payer MEDICARE, BC ==
[2024-06-04 18:59] LABS: RSV AMPLIFICATION NEGATIVE (NEGATIVE)
== END ==
LOC: M SFHCCLAY 16:31
PROVIDERS: ATTEND Physician Assistant
DX: R09.81 Nasal congestion (principal)

== ENCOUNTER → 2024-06-04 | Outpatient (REF) | payer MEDICARE, BC | LOC: M SFHCCLAY 11:18 | PROVIDERS: ATTEND Physician Assistant | DX: R09.81 Nasal congestion (principal) ==

== ENCOUNTER → 2024-08-28 | Outpatient (REF) | payer MEDICARE, BC ==
[2024-08-28 13:32] LABS: BASO % 0.5 % (0.0-1.0); EOS % 0.5 % (0.0-3.0); HEMATOCRIT 38.7 % (36.0-47.0); HEMOGLOBIN 12.9 g/dl (12.0-15.5); LYMPH # 3.8 10^3/uL (1.5-5.0); LYMPH % 47.7 % (24.0-44.0); MEAN CORPUSCULAR HEMOGLOBIN 32.3 pg (27.0-33.0); MEAN CORPUSCULAR HGB CONC 33.3 g/dl (32.0-36.5); MONO # 0.5 10^3/uL (0.0-0.8); MONO % 6.1 % (2.0-8.0); NEUTROPHILS # 3.6 10^3/uL (1.5-8.5); NEUTROPHILS % 44.9 % (36.0-66.0); PLATELET COUNT, AUTOMATED 213 10^3/uL (150-450); RED BLOOD COUNT 3.99 10^6/uL (4.00-5.40); WHITE BLOOD COUNT 7.9 10^3/uL (4.0-10.0)
[2024-08-28 13:36] LABS: ERYTHROCYTE SEDIMENTATION RATE 10 mm/hr (0-30)
[2024-08-28 13:39] LABS: C REACTIVE PROTEIN QUANTITATIV < 0.50 MG/DL (<1.0)
[2024-08-28 13:40] LABS: ALBUMIN 4.4 G/DL (3.2-5.2); ALKALINE PHOSPHATASE 77 U/L (35-104); ALT/SGPT 19 U/L (7.0-40); AST/SGOT 21 U/L (<34); BLOOD UREA NITROGEN 20 MG/DL (9-23); CALCIUM LEVEL 9.7 MG/DL (8.3-10.6); CARBON DIOXIDE LEVEL 30 MMOL/L (20-31); CHLORIDE LEVEL 102 MMOL/L (98-107); CREATININE FOR GFR 0.78 MG/DL (0.55-1.30); GLOMERULAR FILTRATION RATE > 60.0 (>32); GLUCOSE, FASTING 97 MG/DL (74-106); POTASSIUM SERUM 4.2 MMOL/L (3.5-5.1); SODIUM LEVEL 140 MMOL/L (136-145); TOTAL PROTEIN 7.1 G/DL (5.7-8.2)
== END ==
LOC: M SFHCCLAY 09:47
PROVIDERS: ATTEND Internal Medicine Rheumatology
DX: L40.50 Arthropathic psoriasis, unspecified (principal); M89.49 Other hypertrophic osteoarthropathy, multiple sites; D64.9 Anemia, unspecified; R68.2 Dry mouth, unspecified; Z79.899 Other long term (current) drug therapy

== ENCOUNTER → 2024-10-19 | Outpatient (REF) | payer MEDICARE, BC ==
[2024-10-19 13:13] LABS: BASO % 0.6 % (0.0-1.0); EOS # 0.1 10^3/uL (0.0-0.5); EOS % 1.7 % (0.0-3.0); HEMATOCRIT 37.3 % (36.0-47.0); HEMOGLOBIN 12.4 g/dl (12.0-15.5); LYMPH # 3.6 10^3/uL (1.5-5.0); LYMPH % 51.7 % (24.0-44.0); MEAN CORPUSCULAR HEMOGLOBIN 32.6 pg (27.0-33.0); MEAN CORPUSCULAR HGB CONC 33.2 g/dl (32.0-36.5); MEAN CORPUSCULAR VOLUME 98.2 fl (80.0-96.0); MONO # 0.5 10^3/uL (0.0-0.8); MONO % 6.5 % (2.0-8.0); NEUTROPHILS # 2.7 10^3/uL (1.5-8.5); NEUTROPHILS % 39.2 % (36.0-66.0); PLATELET COUNT, AUTOMATED 220 10^3/uL (150-450)
[2024-10-19 13:24] LABS: ALBUMIN 4.2 G/DL (3.2-5.2); BILIRUBIN,TOTAL 0.9 MG/DL (0.3-1.2); CALCIUM LEVEL 9.8 MG/DL (8.3-10.6); CHOLESTEROL RISK RATIO 2.24 (<5); CREATININE FOR GFR 0.74 MG/DL (0.55-1.30); GLOMERULAR FILTRATION RATE 81.2 (>32); HDL CHOLESTEROL 82.1 MG/DL (>40); LDL CHOLESTEROL 88.3 MG/DL (<100); NON-HDL-C 101.9 MG/DL; PERCENT SATURATION 29.4 % (13.2-45.0); TOTAL PROTEIN 6.8 G/DL (5.7-8.2)
[2024-10-19 13:27] LABS: FERRITIN 88.2 NG/ML (7.3-270.7); FREE T4 1.37 NG/DL (0.89-1.76); THYROID STIMULATING HORMONE 2.471 uIU/ML (0.55-4.78)
[2024-10-19 13:31] LABS: HEMOGLOBIN A1c 5.4 % (4.0-6.0)
== END ==
LOC: M SFHCCLAY 07:10
PROVIDERS: ATTEND Nurse Practitioner Family
DX: I10 Essential (primary) hypertension (principal); Z86.79 Personal history of other diseases of the circulatory system; E78.5 Hyperlipidemia, unspecified; E03.9 Hypothyroidism, unspecified; K21.9 Gastro-esophageal reflux disease without esophagitis; D64.9 Anemia, unspecified; E55.9 Vitamin D deficiency, unspecified; L40.50 Arthropathic psoriasis, unspecified; M89.49 Other hypertrophic osteoarthropathy, multiple sites; G25.81 Restless legs syndrome; Z79.899 Other long term (current) drug therapy

== ENCOUNTER → 2025-01-25 | Outpatient (REF) | payer MEDICARE, BC ==
[~2025-01-25] MED LIST changes: +HYDR12.510 PO; -HYDR12CA PO
[2025-01-25 12:14] LABS: BASO # 0.0 10^3/uL (0.0-0.2); BASO % 0.4 % (0.0-1.0); EOS # 0.1 10^3/uL (0.0-0.5); EOS % 1.8 % (0.0-3.0); LYMPH # 4.0 10^3/uL (1.5-5.0); LYMPH % 52.2 % (24.0-44.0); MONO # 0.4 10^3/uL (0.0-0.8); MONO % 5.5 % (2.0-8.0); NEUTROPHILS # 3.0 10^3/uL (1.5-8.5); NEUTROPHILS % 40.0 % (36.0-66.0); PLATELET COUNT, AUTOMATED 198 10^3/uL (150-450)
[2025-01-25 12:15] LABS: INR 0.91
[2025-01-25 12:40] LABS: ALT/SGPT 38.0 U/L (7.0-40); AST/SGOT 40.0 U/L (<34); CALCIUM LEVEL 9.5 MG/DL (8.3-10.6); CARBON DIOXIDE LEVEL 30.0 MMOL/L (20-31); CHLORIDE LEVEL 99.0 MMOL/L (98-107); CREATININE FOR GFR 0.85 MG/DL (0.55-1.30); GLOMERULAR FILTRATION RATE 68.8 (>32); POTASSIUM SERUM 3.7 MMOL/L (3.5-5.1); SODIUM LEVEL 138.0 MMOL/L (136-145)
[2025-01-25 12:44] LABS: IRON (FE) 105.0 UG/DL (50-170); PERCENT SATURATION 32.8 % (13.2-45.0)
== END ==
LOC: M LABDRAWC 11:54
PROVIDERS: ATTEND Orthopaedic Surgery
DX: Z01.818 Encounter for other preprocedural examination (principal); M25.552 Pain in left hip; M16.2 Bilateral osteoarthritis resulting from hip dysplasia

== ENCOUNTER → 2025-03-31 | Outpatient (REF) | payer MEDICARE, BC ==
[2025-03-31 13:58] LABS: BASO # 0.0 10^3/uL (0.0-0.2); BASO % 0.5 % (0.0-1.0); EOS # 0.1 10^3/uL (0.0-0.5); EOS % 1.8 % (0.0-3.0); LYMPH # 3.5 10^3/uL (1.5-5.0); LYMPH % 46.3 % (24.0-44.0); MONO # 0.5 10^3/uL (0.0-0.8); MONO % 6.7 % (2.0-8.0); NEUTROPHILS # 3.4 10^3/uL (1.5-8.5); NEUTROPHILS % 44.3 % (36.0-66.0); PLATELET COUNT, AUTOMATED 235 10^3/uL (150-450)
[2025-03-31 14:11] LABS: ERYTHROCYTE SEDIMENTATION RATE 8 mm/hr (0-30)
[2025-03-31 14:26] LABS: ALT/SGPT 12 U/L (7.0-40); AST/SGOT 25 U/L (<34); C REACTIVE PROTEIN QUANTITATIV < 0.50 MG/DL (<1.0); CALCIUM LEVEL 9.1 MG/DL (8.3-10.6); CARBON DIOXIDE LEVEL 30 MMOL/L (20-31); CHLORIDE LEVEL 102 MMOL/L (98-107); CREATININE FOR GFR 0.78 MG/DL (0.55-1.30); GLOMERULAR FILTRATION RATE 76.3 (>32); POTASSIUM SERUM 3.9 MMOL/L (3.5-5.1); SODIUM LEVEL 143 MMOL/L (136-145)
== END ==
LOC: M SFHCCLAY 09:03
PROVIDERS: ATTEND Internal Medicine Rheumatology
DX: L40.50 Arthropathic psoriasis, unspecified (principal); M89.49 Other hypertrophic osteoarthropathy, multiple sites

== ENCOUNTER → 2025-04-27 | Outpatient (REF) | payer MEDICARE, BC ==
[~2025-04-27] MED LIST changes: -ROSU10TA61; +ROSU10TA90
[2025-04-27 17:52] LABS: IRON (FE) 83.0 UG/DL (50-170); PERCENT SATURATION 24.9 % (13.2-45.0)
[2025-04-27 17:53] LABS: BASO # 0.1 10^3/uL (0.0-0.2); BASO % 0.6 % (0.0-1.0); EOS # 0.1 10^3/uL (0.0-0.5); EOS % 0.9 % (0.0-3.0); LYMPH # 4.0 10^3/uL (1.5-5.0); LYMPH % 46.5 % (24.0-44.0); MONO # 0.5 10^3/uL (0.0-0.8); MONO % 5.8 % (2.0-8.0); NEUTROPHILS # 3.9 10^3/uL (1.5-8.5); NEUTROPHILS % 46.0 % (36.0-66.0); PLATELET COUNT, AUTOMATED 212 10^3/uL (150-450)
== END ==
LOC: M SFHCCLAY 10:49
PROVIDERS: ATTEND Nurse Practitioner Family
DX: D64.9 Anemia, unspecified (principal); M79.605 Pain in left leg

== ENCOUNTER → 2025-04-27 | Outpatient (CLI) | payer MEDICARE, BC | LOC: M CLY 10:58 | PROVIDERS: ATTEND Nurse Practitioner Family | DX: M25.552 Pain in left hip (principal); M51.362 Other intervertebral disc degeneration, lumbar region with discogenic back pain and lower extremity pain ==